=== PATIENT | male | born 1960 | race Caucasian/White ===

== ENCOUNTER 2018-12-03 07:14 | Inpatient (IN) | payer OTHER ==
--- NOTE | 2018-12-03 07:52 | RAD ---
EXAM: XR Chest 1 View Portable PROVIDED CLINICAL HISTORY: Syncope COMPARISON: 06/17/2015 FINDINGS: Cardiac and mediastinal silhouette is within normal limits. Diffuse prominence of the pulmonary inter stitium appears similar to the prior study. Interval development of rounded, masslike opacity involving the left lower lung zone. Flattening of the hemidiaphragms and blunting of both lateral cos tophrenic angles appear similar to the prior study. There is no evidence for pneumothorax. IMPRESSION: Masslike left lower lung zone parenchymal opacity. Correlation with CT recommended.
[2018-12-03 07:58] LABS: #Lymphocytes 0.9 thou/uL (1.20-3.40); #Monocytes 0.9 thou/uL (0.11-0.59); %Basophils 0.5 % (0.0-1.0); %Eosinophils 0.4 % (0.0-10.0); %Lymphocytes 9.6 % (21.0-51.0); %Neutrophils 79.5 % (42.0-75.0); Hemoglobin 17.8 g/dL (14.0-18.0); Mean Corpuscular HGB CONC 33.6 g/dL (32.0-36.0); Mean Corpuscular Hemoglobin 30.7 pg (27.0-31.0); Mean Corpuscular Volume 91.6 fL (78.0-98.0); Mean Platelet Volume 7.5 fL (7.4-10.4); Platelet Count 156 thou/uL (130-400); RBC Distribution Width 16.8 % (11.5-14.5); White Blood Cell (WBC) Count 8.8 thou/uL (4.8-10.8)
[2018-12-03 07:59] LABS: Base Excess-Venous -1.8 mmol/L (-2.0 to 3.0); Bicarbonate (HCO3v) 22.3 mmol/L (22.0-28.0); CO2 Tension (PvCO2) 36.3 mmHg (40.0-50.0); Calcium, Ionized 1.01 mmol/L (See Comments:); Chloride 96 mmol/L (98-107); Hemoglobin - Calc 20.7 g/dL (14.0-18.0); Potassium 4.1 mmol/L (3.5-5.1); Sodium 126 mmol/L (138-145); T. Carbon Dioxide 23.5 mmol/L (22.0-28.0); vO2 Saturation-calc 62.1 % (60.0-85.0)
--- NOTE | 2018-12-03 08:07 | CT ---
Exam: CT brain PROVIDED CLINICAL HISTORY: Syncope COMPARISON: 02/06/2013 FINDINGS: The ventricular system is normal in size and morphology. No evidence for intracranial hemorrhage or mass effect. The extracranial soft tissues and osseous structures demonstrate no evidence for an acute abnormality. IMPRESSION: No evidence for intracranial hemorrhage or mass effect.
[2018-12-03 08:21] LABS: ALT (SGPT) 8 U/L (8-55); AST (SGOT) 18 U/L (5-34); Albumin 3.8 g/dL (3.5-5.0); Alkaline Phosphatase 69 U/L (40-150); Anion Gap 18 mmol/L (10-20); BUN (Urea Nitrogen) 15 mg/dL (8.4-25.7); Bilirubin, Total 0.8 mg/dL (0.2-1.2); Calc. Creatinine Clearance 0 mL/min (70-130); Calcium 9.6 mg/dL (7.8-10.44); Carbon Dioxide 24 mmol/L (22-29); Chloride 88 mmol/L (98-107); Estimated GFR-MDRD 45; Globulin 4.2 g/dL (2.4-3.5); Glucose 95 mg/dL (70-105); Sodium 126 mmol/L (136-145)
[2018-12-03 08:23] LABS: Acetaminophen Less than 6.0 mcg/mL (10.0-30.0); Alcohol Less than 10 mg/dL (Less than 10); CK (CPK) 427 U/L (30-200); Lipase 19 U/L (8-78); Salicylate Less than 8.0 mg/dL (15.0-30.0)
--- NOTE | 2018-12-03 08:36 | CT ---
EXAM: CT cervical spine PROVIDED CLINICAL HISTORY: Syncope, pain COMPARISON: None FINDINGS: No evidence for fracture or traumatic subluxation. No prevertebral soft tissue swelling apparent. Ce rvical degenerative changes are noted. Conspicuous emphysematous change involving visualized lung apices. IMPRESSION: No evidence for fracture or traumatic subluxation.
--- NOTE | 2018-12-03 08:55 | CT ---
EXAM: CT Abdomen Pelvis W Con PROVIDED CLINICAL HISTORY: Syncope COMPARISON: None FINDINGS: Please see concurrently performed CT chest for findings involving the chest. There is a 1.8 cm right adrenal mass. There is a small hiatal hernia. The liver, spleen, pancreas and kidneys demonstrate no significant abnormality. Simple left renal cyst. 1.4 cm left adrenal mass. No bowel dilatation, inflammatory fat stranding, free fluid or free air apparent. Atherosclerosis. Ga llstones. Areas of prior fat necrosis involving omental fat. Fat-containing supraumbilical abdominal wall hernia with associated fat necrosis involving/adjacent to the herniated fat. The osseous structures demonstrate no concerning lytic or blastic lesions. Probably subacute superior endplate compression fracture involving L2. Metallic density within the subcutaneous fat of the right lower pelvis. IMPRESSION: 1. Please see chest CT for regarding chest findings. 2. Bilateral adrenal masses, incompletely characterized. Metastatic disease is not excluded. 3. Subacute appearing superior endplate compression fracture involving L2. 4. Other chronic findings as above.
--- NOTE | 2018-12-03 08:58 | CT ---
CTA Angio Chest W WO Con History: Dyspnea. Abnormal chest radiograph. Comparison: Chest radiograph same day. CT angiogram chest June 17, 2015 Findings: CT angiogram chest performed after the intravenous administration of contrast. 3-D renderin g provided. Pulmonary arteries are dilated. No proximal segmental pulmonary arterial filling defect. Size enlarging left anterior chest wall sebaceous cyst. Size increase from 2016 pretracheal mediastin al lymph nodes. Small nodule measuring 6 mm along the left visceral mediastinal pleura. There is a mass in the left lower lobe is somewhat round measuring up to 5 cm in size with vessels co ursing through the mass. Small effusions. Severe background emphysema with large bullous formation in the upper lobes. Round a telectatic changes right lung base. Old right anterior second, third, fourth, fifth rib fractures. No acute displaced rib fracture. Old a nterior left second, third, and fourth rib fractures as well as 6 rib fracture. No thoracic spine compression fracture. Impression: 1. No pulmonary embolism. 2. 5 cm mass superior segment left lower lobe which is amenable to percutaneous biopsy. 3. Severe background emphysema. 4. Dilated pulmonary artery suggesting pulmonary arterial hypertension. 5. 6 mm nodule axial image 43 abutting the visceral mediastinal pleura concerning for a metastatic de posit. 6. Ill-defined groundglass nodule within the anterior segment left upper lobe axial image 56 may refl ect alveolitis/infection versus an ill-defined satellite nodule.
[2018-12-03 09:44] LABS: Bilirubin Negative (Negative); Blood, Urine Negative (Negative); Clarity Clear (Clear); Glucose, Urine (Dipstick) Normal (Negative); Leukocyte Negative Leu/uL (Negative); Nitrite Negative (Negative); Protein, Urine (Dipstick) 10 mg/dL (Neg-Trace)
[2018-12-03 09:55] LABS: Amphetamine Not Detected (NotDetected); Barbiturates Screen Not Detected (NotDetected); Benzodiazepine Screen Not Detected (NotDetected); Cocaine Metabolite Screen Not Detected (NotDetected); Medtox Control Line Valid? VALID (VALID); Medtox Reader # READER 4; Methadone Not Detected (NotDetected); Methamphetamine Not Detected (NotDetected); Opiate Screen Not Detected (NotDetected); Oxycodone Screen Not Detected (NotDetected); Phencyclidine (PCP) Not Detected (NotDetected); THC/Cannabinoid Screen Not Detected (NotDetected); Tricyclic Screen Not Detected (NotDetected)
[2018-12-03] MEDS ORDERED: Iopamidol 370 76% 100 ML VIAL ONE (10:33)
[2018-12-03] MEDS ORDERED: Senokot S 8.6-50 MG TAB PO PRN (11:22)
[2018-12-03] MEDS ORDERED: Diabetic Tussin 200 MG/10 ML UDCUP PO PRN (11:22)
[2018-12-03] MEDS ORDERED: Ondansetron PF 4 MG/2 ML Vial IVP PRN (11:22)
[2018-12-03] MEDS ORDERED: hydrALAZINE 20 MG/ML VIAL SLOW IVP PRN (11:22)
[2018-12-03] MEDS ORDERED: Sodium Chloride 0.65% Nasal 44 ML BOT EA NARE PRN (11:22)
[2018-12-03] MEDS ORDERED: Artificial Tears 18 DROP/0.9 ML EA EYE PRN (11:22)
[2018-12-03] MEDS ORDERED: Cepastat Lozenges 1 LOZ PO PRN (11:22)
[2018-12-03] MEDS ORDERED: Zolpidem Tartrate 5 MG TAB PO PRN (11:22)
[2018-12-03] MEDS ORDERED: Loperamide HCl 2 MG CAP PO PRN (11:22)
[2018-12-03] MEDS ORDERED: Loratadine 10 MG TAB PO PRN (11:22)
[2018-12-03] MEDS ORDERED: Calcium Carbonate 500 MG ChewTAB PO PRN (11:22)
[2018-12-03] MEDS ORDERED: Bisacodyl 10 MG SUPP PR PRN (11:22)
[2018-12-03 11:54] LABS: Lactic Acid 1.8 mmol/L (0.5-2.2)
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
[2018-12-03] MEDS: Ondansetron ODT 4 MG TAB PO PRN ×2 (15:17→21:47)
[2018-12-03] MEDS: Sodium Chloride 0.9% 1,000 ML IV SCH (16:16)
[2018-12-03 17:12] LABS: Creatinine, Urine 111.54 mg/dL (63-166)
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
[2018-12-03] MEDS: Mometasone/Formoterol 120 PUFF INHALER INH SCH (19:01)
[2018-12-03] MEDS ORDERED: Doxycycline 100 MG CAP PO SCH (21:00)
[2018-12-03] MEDS ORDERED: Promethazine 25 MG TAB PO PRN (21:30)
[2018-12-03] MEDS ORDERED: hydrOXYzine Pamoate 25 mg Capsule PO PRN (21:30)
[2018-12-03] MEDS ORDERED: Divalproex Sodium DR 500 MG TAB PO SCH (22:30)
[2018-12-03] MEDS ORDERED: risperiDONE 0.25 MG TAB PO SCH (22:30)
[2018-12-03] MEDS ORDERED: traMADol HCl 50 MG TAB PO SCH (22:30)
[2018-12-03] MEDS ORDERED: Benztropine 1 MG TAB PO SCH (22:30)
[2018-12-04] MEDS: Sodium Chloride 0.9% 1,000 ML IV SCH (00:06)
[2018-12-04 04:17] LABS: Lactic Acid 1.1 mmol/L (0.5-2.2)
[2018-12-04 04:28] LABS: ALT (SGPT) Less than 7 U/L (8-55); AST (SGOT) 17 U/L (5-34); Albumin 2.8 g/dL (3.5-5.0); Alkaline Phosphatase 50 U/L (40-150); Anion Gap 9 mmol/L (10-20); BUN (Urea Nitrogen) 11 mg/dL (8.4-25.7); Bilirubin, Total 0.6 mg/dL (0.2-1.2); Calc. Creatinine Clearance 117 mL/min (70-130); Calcium 8.6 mg/dL (7.8-10.44); Carbon Dioxide 27 mmol/L (22-29); Chloride 97 mmol/L (98-107); Estimated GFR-MDRD Greater than 90; Globulin 3.1 g/dL (2.4-3.5); Glucose 72 mg/dL (70-105); Potassium 3.7 mmol/L (3.5-5.1); Protein, Total 5.9 g/dL (6.0-8.3); Sodium 129 mmol/L (136-145)
[2018-12-04 04:45] LABS: Band 5 % (5-11); Elliptocytes SLIGHT = 2-5 cells (100X) (0-1/hpf); Eosinophils 1 % (0-10); Lymphocytes 16 % (21-51); MDiff Complete? YES; Mean Corpuscular HGB CONC 33.9 g/dL (32.0-36.0); Mean Corpuscular Hemoglobin 31.2 pg (27.0-31.0); Mean Corpuscular Volume 92.1 fL (78.0-98.0); Mean Platelet Volume 7.8 fL (7.4-10.4); Metamyelocyte 1 % (0-0); Monocytes 13 % (0-10); Neutrophil 62 % (42-75); Platelet Count 86 thou/uL (130-400); Platelet Morphology Comment Appears Decreased; RBC Distribution Width 16.5 % (11.5-14.5); Reactive Lymphocytes 2 % (0-10); Red Blood Cell (RBC) Count 4.16 mill/uL (4.70-6.10); White Blood Cell (WBC) Count 6.3 thou/uL (4.8-10.8)
[2018-12-04] MEDS: Mometasone/Formoterol 120 PUFF INHALER INH SCH ×2 (07:23→18:28)
[2018-12-04] MEDS ORDERED: Famotidine 20 MG TAB PO SCH (09:00)
[2018-12-04] MEDS ORDERED: Enoxaparin Sodium 40 MG/0.4 ML SYRINGE SC SCH (09:00)
[2018-12-04] MEDS: Benztropine 1 MG TAB PO SCH ×2 (09:17→20:14)
[2018-12-04] MEDS: traMADol HCl 50 MG TAB PO SCH ×2 (09:17→20:15)
[2018-12-04] MEDS: Furosemide 20 MG TAB PO SCH (09:17)
[2018-12-04] MEDS: Divalproex Sodium DR 500 MG TAB PO SCH ×2 (09:18→20:15)
[2018-12-04] MEDS: Nicotine 21 MG PATCH TD SCH ×2 (09:19→11:18)
--- NOTE | 2018-12-04 11:52 | PDOC.HOSPP ---
- Subjective Encounter Date: 12/04/18 Encounter Time: 07:15 Subjective: Patient seen and examined. No new complaints. No overnight events today he is less short of breath, no fever, still weak - Objective Vital Signs & Weight: Vital Signs (12 hours) Temp Pulse Resp BP Pulse Ox 12/04/18 08:18 98.3 F 106 H 18 126/80 94 L 12/04/18 07:28 93 L 12/04/18 07:26 93 16 93 L 12/04/18 07:23 93 16 93 L 12/04/18 04:00 99.4 F 96 16 111/74 92 L 12/04/18 00:06 112 H 20 89 L 12/04/18 00:00 98.8 F 110 H 18 124/78 89 L Weight Weight 185 lb 4.8 oz I&O: 12/03/18 12/04/18 12/05/18 06:59 06:59 06:59 Intake Total 1440 Output Total 625 Balance 815 Result Diagrams: 12/04/18 03:36 12/04/18 03:36 Hospitalist ROS - Review of Systems Constitutional: reports: weakness. denies: fever, chills, sweats, malaise, other Eyes: denies: pain, vision change, conjunctivae inflammation, eyelid inflammation, redness, other ENT: denies: ear pain, ear discharge, nose pain, nose discharge, nose congestion , mouth pain, mouth swelling, throat pain, throat swelling, other Respiratory: reports: cough, shortness of breath. denies: dry, hemoptysis, SOB with excertion, pleuritic pain, sputum, wheezing, other Cardiovascular: denies: chest pain, palpitations, orthopnea, paroxysmal noc. dyspnea, edema, light headedness, other Gastrointestinal: denies: nausea, vomitting, abdominal pain, diarrhea, constipation, melena, hematochezia, other Genitourinary: denies: dysuria, frequency, incontinence, hematuria, retention, other Musculoskeletal: denies: neck pain, shoulder pain, arm pain, back pain, hand pain, leg pain, foot pain, other Skin: denies: rash, lesions, aniket, bruising, other - Medication Medications: Active Medications Generic Name Dose Route Start Last Admin Trade Name Freq PRN Reason Stop Dose Admin Albuterol/Ipratropium 3 ml 12/03/18 13:00 12/04/18 07:26 Duoneb NEB 3 ml [id number] ZEFERINO Administration Benztropine Mesylate 1 mg 12/04/18 09:00 12/04/18 09:17 Cogentin PO 1 mg BID ZEFERINO Administration Divalproex Sodium 500 mg 12/04/18 09:00 12/04/18 09:18 Depakote PO 500 mg DAILY ZEFERINO Administration Famotidine 20 mg 12/04/18 09:00 12/04/18 09:17 Pepcid PO 20 mg DAILY ZEFERINO Administration Furosemide 20 mg 12/04/18 09:00 12/04/18 09:17 Lasix PO 20 mg DAILY ZEFERINO Administration Hydroxyzine Pamoate 25 mg 12/03/18 21:30 12/04/18 09:19 Vistaril PO 25 mg TID PRN Administration Anxiety Levofloxacin 500 mg/ Device 100 mls @ 100 mls/hr 12/04/18 09:00 12/04/18 10: 46 IVPB 100 mls Q24HR ZEFERINO Administration Mometasone Furoate/Formoterol Fumar 2 puff 12/03/18 18:30 12/04/18 07:23 Dulera 200 Mcg/5 Mcg Inhaler INH 2 puff BID-RT ZEFERINO Administration Nicotine 21 mg 12/04/18 09:00 12/04/18 11:18 Nicoderm Patch TD 21 mg DAILY ZEFERINO Administration Ondansetron HCl 4 mg 12/03/18 11:22 12/03/18 21:47 Zofran Odt PO 4 mg Q6H PRN Administration Nausea/Vomiting Sodium Chloride 10 ml 12/04/18 09:00 12/04/18 10:47 Flush - Normal Saline IVF 10 ml Q12HR ZEFERINO Administration Tramadol HCl 50 mg 12/04/18 09:00 12/04/18 09:17 Ultram PO 50 mg BID ZEFERINO Administration - Exam General Appearance: NAD, ill appearing Eye: PERRL, anicteric sclera ENT: normocephalic atraumatic, no oropharyngeal lesions Neck: supple, symmetric, no JVD, no thyromegaly Heart: RRR, no murmur, no gallops, no rubs Respiratory: no rales, no ronchi Respiratory - other findings: air entry reduced both side, left base Gastrointestinal: soft, non-tender, non-distended, normal bowel sounds Extremities: no clubbing, no edema Skin: normal turgor, no lesions Neurological: no focal deficits Musculoskeletal: normal tone, normal strength Psychiatric: normal affect, normal behavior Hosp A/P (1) Acute respiratory failure with hypoxemia Code(s): J96.01 - ACUTE RESPIRATORY FAILURE WITH HYPOXIA Status: Acute (2) Adrenal mass Status: Acute (3) COPD exacerbation Code(s): J44.1 - CHRONIC OBSTRUCTIVE PULMONARY DISEASE W (ACUTE) EXACERBATION Status: Acute (4) Frequent falls Code(s): R29.6 - REPEATED FALLS Status: Acute (5) Hyponatremia Code(s): E87.1 - HYPO-OSMOLALITY AND HYPONATREMIA Status: Acute (6) Hypotension Status: Acute (7) Lung mass Code(s): R91.8 - OTHER NONSPECIFIC ABNORMAL FINDING OF LUNG FIELD Status: Acute (8) Thrombocytopenia Code(s): D69.6 - THROMBOCYTOPENIA, UNSPECIFIED Status: Acute (9) Anxiety and depression Code(s): F41.9 - ANXIETY DISORDER, UNSPECIFIED; F32.9 - MAJOR DEPRESSIVE DISORDER, SINGLE EPISODE, UNSPECIFIED Status: Chronic (10) COPD (chronic obstructive pulmonary disease) Status: Chronic (11) Obesity (BMI 30-39.9) Code(s): E66.9 - OBESITY, UNSPECIFIED Status: Chronic (12) Tobacco abuse Code(s): Z72.0 - TOBACCO USE Status: Chronic - Plan old records reviewed/req, continue antibiotics, PT/OT, respiratory therapy tomorrow he will need IR guaided lung biopsy as his platelet low, will hold lovenox tomorrow will repeat labs cbc, bmp, and coagulation profile continue PT continue levaquin for now echo today he may need placement ?rehab medication reviewed as above symptomatic treatment
--- NOTE | 2018-12-04 13:56 | PRG ---
DATE OF SERVICE: 12/04/2018 SUBJECTIVE: He feels better. He is still having pain on the right side. OBJECTIVE: VITAL SIGNS: On exam, temperature 97.7, pulse 98, respirations 16, O2 saturation 94% on 3 L, and blood pressure 106/65. HEENT: Unremarkable. NECK: No adenopathy. No JVD. LUNGS: Clear. CARDIAC: S1 and S2. Regular. ABDOMEN: Soft. EXTREMITIES: No edema. LABORATORY DATA: White blood cell count 6.3, hematocrit 38.3, and platelet count 86. Sodium 129, potassium 3.7, chloride 97, CO2 of 27, BUN 11, creatinine 0.7, and glucose 72. BNP 257. ASSESSMENT: 1. Lung mass - likely lung cancer. 2. Hyponatremia. 3. Mild thrombocytopenia. PLAN: Hopefully, lung biopsy tomorrow. The patient may need to have platelets given just before the procedure. Job ID: [id number]
[2018-12-04] MEDS: risperiDONE 0.25 MG TAB PO SCH (20:15)
[2018-12-05] MEDS: HYDROcodone/Acetaminophen 5/325 mg Tablet PO PRN ×2 (05:31→14:56)
[2018-12-05 06:26] LABS: INR-International Normal Ratio 1.2; PTT 37.2 SEC (22.9-36.1); Prothrombin Time 14.9 SEC (12.0-14.7)
[2018-12-05 06:36] LABS: Anion Gap 10 mmol/L (10-20); BUN (Urea Nitrogen) 8 mg/dL (8.4-25.7); Calc. Creatinine Clearance 123 mL/min (70-130); Calcium 8.8 mg/dL (7.8-10.44); Carbon Dioxide 29 mmol/L (22-29); Chloride 94 mmol/L (98-107); Estimated GFR-MDRD Greater than 90; Glucose 71 mg/dL (70-105); Potassium 4.2 mmol/L (3.5-5.1); Sodium 129 mmol/L (136-145)
[2018-12-05 06:42] LABS: Band 1 % (5-11); Eosinophils 2 % (0-10); Hemoglobin 11.4 g/dL (14.0-18.0); Lymphocytes 23 % (21-51); MDiff Complete? YES; Mean Corpuscular Hemoglobin 29.7 pg (27.0-31.0); Mean Corpuscular Volume 92.9 fL (78.0-98.0); Mean Platelet Volume 7.3 fL (7.4-10.4); Metamyelocyte 1 % (0-0); Monocytes 11 % (0-10); Neutrophil 62 % (42-75); Platelet Count 74 thou/uL (130-400); Platelet Morphology Comment Appears Decreased; RBC Distribution Width 16.6 % (11.5-14.5); Red Blood Cell (RBC) Count 3.82 mill/uL (4.70-6.10); White Blood Cell (WBC) Count 5.4 thou/uL (4.8-10.8)
[2018-12-05] MEDS: Mometasone/Formoterol 120 PUFF INHALER INH SCH ×2 (08:03→18:13)
[2018-12-05] MEDS: Benztropine 1 MG TAB PO SCH ×2 (09:13→19:52)
[2018-12-05] MEDS: traMADol HCl 50 MG TAB PO SCH ×2 (09:13→19:53)
[2018-12-05] MEDS: Furosemide 20 MG TAB PO SCH (09:15)
[2018-12-05] MEDS: Famotidine 20 MG TAB PO SCH ×2 (09:15→19:52)
[2018-12-05] MEDS: Nicotine 21 MG PATCH TD SCH (09:15)
[2018-12-05] MEDS: Divalproex Sodium DR 500 MG TAB PO SCH ×2 (09:59→19:53)
--- NOTE | 2018-12-05 10:22 | PRG ---
DATE OF SERVICE: 12/05/2018 SUBJECTIVE: The patient is doing about the same. He is coughing up some blood. Scheduled to have lung biopsy later today. PHYSICAL EXAMINATION: VITAL SIGNS: His temperature is 97.5, pulse 80, respirations 16, and O2 saturation 97% on 3 L. HEENT: Unremarkable. NECK: No adenopathy or JVD. LUNGS: Clear anteriorly. CARDIAC: S1 and S2. Regular. ABDOMEN: Soft. EXTREMITIES: No edema. ASSESSMENT: 1. Lung mass, left lower lobe, probably with adrenal metastases. 2. Thrombocytopenia. PLAN: Platelet transfusion and lung biopsy. Job ID: [id number]
[2018-12-05] MEDS ORDERED: Fentanyl 100 MCG/2 ML VIAL ONE (10:57)
[2018-12-05] MEDS ORDERED: Sodium Bicarbonate 2.5 MEQ/5 ML VIAL ONE (10:57)
[2018-12-05] MEDS ORDERED: Midazolam HCl 2 mg/2 ml Vial ONE (10:57)
--- NOTE | 2018-12-05 12:20 | RAD ---
CHEST 2 VIEWS: HISTORY: Status post left lower lobe lung biopsy. FINDINGS: Upright inspiratory and expiratory chest radiograph demonstrate a normal-appearing cardiac silhouette . Chronic changes of the lung parenchyma are identified. Small bilateral effusions are noted. There is evidence of a left lower lobe mass. Upright inspiratory and expiratory radiographs do not demonstr ate a pneumothorax. IMPRESSION: Left lower lobe mass. Patient is status post left lower lobe mass biopsy. No pneumothorax. Transcribed Date/Time: 12/05/2018 1:29 PM
--- NOTE | 2018-12-05 13:02 | CT ---
EXAM: CT Lung Perc Biopsy PROVIDED CLINICAL HISTORY: Left lower lobe lung mass. Biopsy was requested. COMPARISON: CTA chest on 12/03/2018 TECHNIQUE: The procedure including the risks and complications were explained to the patient, and informed conse nt was obtained. The patient was placed on the CT scan table in the prone position. A limited noncontrasted CT scan was obtained through the lower chest with grid localizer in place. An area over lying the left lower lobe mass was marked, and the area was meticulously prepped and draped in usual sterile fashion. The skin and subcutaneous tissues were infiltrated with buffered 1% lidocaine for local anesthesia. A small skin incision was made. A 19-gauge guide needle was advanced followed by axial noncontrasted CT images. This was repeated until the tip of the needle was placed just within the peripheral aspect of the left lower lobe mass. A total of three 20-gauge core needle biopsy specimens were obtained utilizing coaxial technique. The needle was removed, and hemostasis was achieved with direct pressure . Postbiopsy CT images were obtained without evidence of a pneumothorax or findings to suggest a hemato ma. The patient tolerated the procedure well and without immediate complication. Patient was transported to his hospital room in stable condition. IMPRESSION: 1. Large left lower lobe mass. 2. Technically successful CT-guided percutaneous biopsy of the left lower lobe mass. Pathology is cur rently pending. Pathologist was available during the exam and noted adequate material obtained on biopsy specimens.
[2018-12-05 13:13] VITALS: BMI 26.6
--- NOTE | 2018-12-05 15:10 | RAD ---
EXAM: XR Chest Insp/Exp PROVIDED CLINICAL HISTORY: Postbiopsy left lower lobe mass. COMPARISON: 12/05/2018 at 1209 hours. FINDINGS: Patient is rotated to the right which accentuates the cardiac silhouette and mediastinal structures. Chronic appearing lung changes are again seen bilaterally. The large left lower lobe mass is again seen. No pneumothorax is seen, and there is no evidence of a pleural effusion. Chest is overall stabl e when compared to the prior exam. IMPRESSION: Left lower lobe mass and chronic lung changes. No pneumothorax is visualized.
[2018-12-05] MEDS ORDERED: Milk Of Magnesia 30 ML UDCUP PO PRN (15:15)
--- NOTE | 2018-12-05 17:32 | PRG ---
DATE OF SERVICE: 12/05/2018 SUBJECTIVE: The patient is a 58-year-old male with COPD, tobacco dependence, who presented to the emergency room on December 03, 2018, with shortness of breath along with syncope and abdominal discomfort. He had 4 syncopal episodes the day before admission as well as 2 on the day of admission with a witnessed fall. He also reported significant weight loss. His workup in the emergency room was consistent with lung mass along with hyponatremia. The patient underwent a CT-guided lung biopsy today. He denies any chest pain or palpitations at this time. Current medications were reviewed. OBJECTIVE: VITAL SIGNS: Temperature 98.2 with pulse rate of 63, respirations of 18, O2 saturation 93% on 3 L nasal cannula, blood pressure of 111/60. GENERAL: A 58-year-old male, in no apparent distress. LUNGS: Diminished air entry at bilateral bases with scattered rhonchi. HEART: S1 and S2 present. Regular rate and rhythm. ABDOMEN: Soft. Bowel sounds present. EXTREMITIES: No edema or calf tenderness. NEUROLOGIC: Grossly nonfocal. LABORATORY FINDINGS: Sodium 129 from 126 on admission, albumin 2.8, creatinine 0.76 from 1.59 on admission. Urine drug screen was negative. Urine osmolality 399, urine sodium 30, serum osmolality of 279. Blood cultures have been negative. Platelet count of 74. IMAGING STUDIES: Chest x-ray by my review was negative for acute findings. It showed left lower lobe lung mass. CT angiogram of the chest showed left lower lobe lung mass. Echocardiogram showed left ventricular ejection fraction 60% to 65%. CT scan of the abdomen and pelvis showed bilateral adrenal masses with subacute compression fracture of L2. IMPRESSION: 1. Generalized weakness, multifactorial. 2. Lung mass status post CT-guided biopsy. 3. Acute hypoxic respiratory failure secondary to mild chronic obstructive pulmonary disease exacerbation. 4. Hyponatremia secondary to dehydration. 5. Acute kidney injury, improving. 6. Bilateral adrenal masses. 7. Thrombocytopenia. 8. Ongoing tobacco abuse. 9. Anxiety. 10. Depression, mild, stable. 11. Gastroesophageal reflux disease. 12. Hypotension, on admission secondary to volume depletion. 13. Frequent falls. 14. Syncopal episode on admission probably secondary to volume depletion. 15. Lactic acidosis, suspected to be secondary to volume depletion. 16. Chronic low back pain. PLAN: The patient underwent CT-guided lung biopsy today. We will await biopsy report. We will continue Levaquin. Continue nebulizer treatments. Hold Lasix due to hyponatremia. Continue current home medications. Tobacco cessation was emphasized. Continue physical therapy. Recheck labs in a.m. Monitor platelets on a daily basis. Consult case mgr for longterm evaluation. Plan of care was discussed with the patient in detail. He stated understanding. Job ID: [id number]
[2018-12-05] MEDS: Mineral Oil ENEMA PR SCH (18:24)
[2018-12-05] MEDS: Polyethylene Glycol 3350 17 GM Packet PO SCH (19:50)
[2018-12-05] MEDS: Senokot S 8.6-50 MG TAB PO SCH (19:52)
[2018-12-05] MEDS: risperiDONE 0.25 MG TAB PO SCH (19:53)
[2018-12-06 05:21] LABS: Eosinophils 1 % (0-10); Hemoglobin 13.6 g/dL (14.0-18.0); Hypochromia SLIGHT = 6-15 cells (100X) (0-5/hpf); Lymphocytes 12 % (21-51); MDiff Complete? YES; Mean Corpuscular Hemoglobin 31.6 pg (27.0-31.0); Mean Platelet Volume 9.5 fL (7.4-10.4); Monocytes 3 % (0-10); Neutrophil 84 % (42-75); Platelet Count 78 thou/uL (130-400); Platelet Morphology Comment Appears Decreased; RBC Distribution Width 16.8 % (11.5-14.5); White Blood Cell (WBC) Count 5.2 thou/uL (4.8-10.8)
[2018-12-06] MEDS: Mineral Oil ENEMA PR SCH (06:21)
[2018-12-06 07:09] LABS: Albumin 3.3 g/dL (3.5-5.0); Anion Gap 14 mmol/L (10-20); BUN (Urea Nitrogen) 7 mg/dL (8.4-25.7); BUN/Creatinine Ratio 8.64; Calc. Creatinine Clearance 115 mL/min (70-130); Calcium 9.5 mg/dL (7.8-10.44); Carbon Dioxide 28 mmol/L (22-29); Chloride 91 mmol/L (98-107); Estimated GFR-MDRD Greater than 90; Glucose 65 mg/dL (70-105); Magnesium 1.9 mg/dL (1.6-2.6); Phosphorus 4.4 mg/dL (2.3-4.7); Potassium 4.7 mmol/L (3.5-5.1); Sodium 128 mmol/L (136-145)
[2018-12-06] MEDS: Mometasone/Formoterol 120 PUFF INHALER INH SCH ×2 (07:18→18:10)
[2018-12-06] MEDS: traMADol HCl 50 MG TAB PO SCH ×2 (09:46→20:52)
[2018-12-06] MEDS: Benztropine 1 MG TAB PO SCH ×2 (09:46→19:20)
[2018-12-06] MEDS: Folic Acid 1 MG TAB PO SCH (09:46)
[2018-12-06] MEDS: Multivit, Therapeutic 1 TAB PO SCH (09:46)
[2018-12-06] MEDS: Senokot S 8.6-50 MG TAB PO SCH ×2 (09:46→19:20)
[2018-12-06] MEDS: Famotidine 20 MG TAB PO SCH ×2 (09:46→19:26)
[2018-12-06] MEDS: Polyethylene Glycol 3350 17 GM Packet PO SCH ×2 (09:47→19:22)
[2018-12-06] MEDS: Bisacodyl 10 MG SUPP PR SCH (09:48)
[2018-12-06] MEDS: Divalproex Sodium DR 500 MG TAB PO SCH ×2 (09:49→19:22)
--- NOTE | 2018-12-06 10:13 | PRG ---
DATE OF SERVICE: 12/06/2018 SUBJECTIVE: The patient seems to be doing okay. He has no acute complaints except for pain. OBJECTIVE: VITAL SIGNS: His temperature is 97.7, pulse 80, respirations 18, O2 saturation 92% on 2.5 L, and blood pressure 107/82. HEENT: Unremarkable. NECK: No adenopathy, JVD, or bruits. LUNGS: Clear. ABDOMEN: Soft. EXTREMITIES: No edema. ASSESSMENT: 1. Left lower lobe lung mass, likely cancer. 2. Bilateral adrenal lesions. PLAN: Probably, we will require further staging as an outpatient with PET scan. Once the biopsy is back, I would get Oncology involved. I do not think he is a surgical candidate based on the appearance of the abdominal CT. Job ID: [id number]
[2018-12-06] MEDS: risperiDONE 0.25 MG TAB PO SCH (19:21)
[2018-12-06] MEDS: HYDROcodone/Acetaminophen 5/325 mg Tablet PO PRN (19:21)
--- NOTE | 2018-12-06 21:16 | PDOC.HOSPP ---
- Subjective Encounter Date: 12/06/18 Encounter Time: 09:30 Subjective: Patient seen and examined for Lung mass. No new CP or SOB. No new complaints. No overnight events - Objective Vital Signs & Weight: Vital Signs (12 hours) Temp Pulse Resp BP Pulse Ox 12/06/18 19:22 97.7 F 97 16 118/77 94 L 12/06/18 18:09 89 16 98 12/06/18 13:33 68 18 91 L Weight Admit Weight 184 lb Weight 185 lb 4.8 oz Most Recent Monitor Data NIBP 99/67 I&O: 12/05/18 12/06/18 12/07/18 06:59 06:59 06:59 Intake Total 590 799 1465 Output Total 400 300 900 Balance -100 540 660 Result Diagrams: 12/06/18 04:49 12/06/18 06:42 Additional Labs: Accuchecks 12/06/18 17:38 POC Glucose 79 Radiology Reviewed by me: Yes (CXR - reviewed) Hospitalist ROS - Review of Systems Cardiovascular: denies: chest pain, palpitations, orthopnea, paroxysmal noc. dyspnea, edema, light headedness, other Gastrointestinal: denies: nausea, vomitting, abdominal pain, diarrhea, constipation, melena, hematochezia, other - Medication Medications: Active Medications Generic Name Dose Route Start Last Admin Trade Name Freq PRN Reason Stop Dose Admin Hydrocodone Bitart/Acetaminophen 1 tab 12/03/18 11:22 12/06/18 19:21 [place] 5/325 PO 1 tab Q4H PRN Administration Moderate Pain (4-6) Albuterol/Ipratropium 3 ml 12/03/18 13:00 12/06/18 18:09 Duoneb NEB 3 ml [id number] ZEFERINO Administration Benztropine Mesylate 1 mg 12/04/18 09:00 12/06/18 19:20 Cogentin PO 1 mg BID ZEFERINO Administration Bisacodyl 10 mg 12/06/18 09:00 12/06/18 09:48 Dulcolax MA 10 mg DAILY ZEFERINO Administration Divalproex Sodium 500 mg 12/04/18 09:00 12/06/18 09:49 Depakote PO 500 mg DAILY ZEFERINO Administration Divalproex Sodium 1,000 mg 12/04/18 21:00 12/06/18 19:22 Depakote PO 1,000 mg HS ZEFERINO Administration Famotidine 20 mg 12/05/18 09:00 12/06/18 19:26 Pepcid PO Not Given BID ZEFERINO Folic Acid 1 mg 12/06/18 09:00 12/06/18 09:46 Folvite PO 1 mg DAILY ZEFERINO Administration Hydroxyzine Pamoate 25 mg 12/03/18 21:30 12/04/18 09:19 Vistaril PO 25 mg TID PRN Administration Anxiety Levofloxacin 500 mg/ Device 100 mls @ 100 mls/hr 12/04/18 09:00 12/06/18 10: 34 IVPB 100 mls Q24HR ZEFERINO Administration Mometasone Furoate/Formoterol Fumar 2 puff 12/03/18 18:30 12/06/18 18:10 Dulera 200 Mcg/5 Mcg Inhaler INH 2 puff BID-RT ZEFERINO Administration Multivitamins 1 tab 12/06/18 09:00 12/06/18 09:46 Theragran PO 1 tab DAILY ZEFERINO Administration Ondansetron HCl 4 mg 12/03/18 11:22 12/03/18 21:47 Zofran Odt PO 4 mg Q6H PRN Administration Nausea/Vomiting Polyethylene Glycol 17 gm 12/05/18 21:00 12/06/18 19:22 Miralax PO 17 gm BID ZEFERINO Administration Risperidone 0.5 mg 12/04/18 21:00 12/06/18 19:21 Risperidone PO 0.5 mg HS ZEFERINO Administration Senna/Docusate Sodium 2 tab 12/05/18 21:00 12/06/18 19:20 Senokot S PO 2 tab BID ZEFERINO Administration Sodium Chloride 10 ml 12/04/18 09:00 12/06/18 19:22 Flush - Normal Saline IVF 10 ml Q12HR ZEFERINO Administration Tramadol HCl 50 mg 12/04/18 09:00 12/06/18 20:52 Ultram PO Not Given BID ZEFERINO - Exam General Appearance: NAD Neck: supple, no JVD Heart: RRR, no gallops, no rubs Respiratory: CTAB, no wheezes, rhonchi Gastrointestinal: soft, non-tender, non-distended, normal bowel sounds Extremities: no edema Hosp A/P - Plan DVT proph w/SCDs IMPRESSION: 1. Generalized weakness, multifactorial. 2. Lung mass status post CT-guided biopsy. 3. Acute hypoxic respiratory failure secondary to mild COPD exacerbation. 4. Hyponatremia secondary to dehydration. 5. Acute kidney injury, improving. 6. Bilateral adrenal masses. 7. Thrombocytopenia. 8. Ongoing tobacco abuse. 9. Anxiety. 10. Depression, mild, stable. 11. Gastroesophageal reflux disease. 12. Hypotension, on admission secondary to volume depletion. 13. Frequent falls. 14. Syncopal episode on admission probably secondary to volume depletion. 15. Lactic acidosis, suspected to be secondary to volume depletion. 16. Chronic low back pain. PLAN: Await biopsy report. Continue Levaquin with nebulizer treatments. Lasix on hold due to hyponatremia. Wean O2 Hold Lovenox due to low platelets AM labs
[2018-12-07 04:41] LABS: Band 1 % (5-11); Eosinophils 7 % (0-10); Hemoglobin 13.8 g/dL (14.0-18.0); Lymphocytes 22 % (21-51); MDiff Complete? YES; Mean Corpuscular HGB CONC 33.4 g/dL (32.0-36.0); Mean Corpuscular Hemoglobin 31.2 pg (27.0-31.0); Mean Corpuscular Volume 93.6 fL (78.0-98.0); Mean Platelet Volume 7.1 fL (7.4-10.4); Monocytes 12 % (0-10); Neutrophil 58 % (42-75); Platelet Count 93 thou/uL (130-400); Platelet Morphology Comment Appears Decreased; RBC Distribution Width 16.9 % (11.5-14.5); Red Blood Cell (RBC) Count 4.41 mill/uL (4.70-6.10)
[2018-12-07 04:49] LABS: Albumin 3.3 g/dL (3.5-5.0); Anion Gap 14 mmol/L (10-20); BUN (Urea Nitrogen) 7 mg/dL (8.4-25.7); BUN/Creatinine Ratio 8.86; Calc. Creatinine Clearance 118 mL/min (70-130); Calcium 9.5 mg/dL (7.8-10.44); Carbon Dioxide 28 mmol/L (22-29); Chloride 92 mmol/L (98-107); Estimated GFR-MDRD Greater than 90; Glucose 81 mg/dL (70-105); Phosphorus 4.1 mg/dL (2.3-4.7); Potassium 4.8 mmol/L (3.5-5.1); Sodium 129 mmol/L (136-145)
[2018-12-07] MEDS: Mometasone/Formoterol 120 PUFF INHALER INH SCH ×2 (06:54→18:58)
[2018-12-07] MEDS: Divalproex Sodium DR 500 MG TAB PO SCH ×2 (08:03→20:17)
[2018-12-07] MEDS: Benztropine 1 MG TAB PO SCH ×2 (08:04→20:15)
[2018-12-07] MEDS: traMADol HCl 50 MG TAB PO SCH ×2 (08:04→20:16)
[2018-12-07] MEDS: Famotidine 20 MG TAB PO SCH ×2 (08:04→20:15)
[2018-12-07] MEDS: Senokot S 8.6-50 MG TAB PO SCH ×2 (08:05→20:15)
[2018-12-07] MEDS: Bisacodyl 10 MG SUPP PR SCH (08:05)
[2018-12-07] MEDS: Folic Acid 1 MG TAB PO SCH (08:05)
[2018-12-07] MEDS: Multivit, Therapeutic 1 TAB PO SCH (08:05)
[2018-12-07] MEDS: Acetaminophen 325 MG TAB PO PRN (08:08)
--- NOTE | 2018-12-07 17:43 | PDOC.HOSPP ---
- Subjective Encounter Date: 12/07/18 Encounter Time: 16:00 Subjective: Patient seen and examined for Resp failure. No CP or SOB at rest. Productive cough +. No new complaints. No overnight events - Objective Vital Signs & Weight: Vital Signs (12 hours) Temp Pulse Resp BP BP Pulse Ox 12/07/18 16:45 98.1 F 73 18 144/77 H 94 L 12/07/18 13:17 85 16 12/07/18 12:36 97.8 F 72 18 130/86 94 L 12/07/18 08:18 97.7 F 78 18 134/87 95 12/07/18 07:32 98 12/07/18 07:29 84 16 98 Weight Admit Weight 184 lb Weight 185 lb 4.8 oz Most Recent Monitor Data NIBP 99/67 I&O: 12/06/18 12/07/18 12/08/18 06:59 06:59 06:59 Intake Total 840 2040 Output Total 300 1300 Balance 540 740 Result Diagrams: 12/07/18 04:10 12/07/18 04:11 Additional Labs: Accuchecks 12/07/18 12/06/18 00:55 17:38 POC Glucose 89 79 Hospitalist ROS - Review of Systems Cardiovascular: denies: chest pain, palpitations, orthopnea, paroxysmal noc. dyspnea, edema, light headedness, other Gastrointestinal: denies: nausea, vomiting, abdominal pain, diarrhea, constipation, melena, hematochezia, other - Medication Medications: Active Medications Generic Name Dose Route Start Last Admin Trade Name Freq PRN Reason Stop Dose Admin Acetaminophen 650 mg 12/03/18 11:22 12/07/18 08:08 Tylenol PO 650 mg Q4H PRN Administration Headache/Fever/Mild Pain (1-3) Hydrocodone Bitart/Acetaminophen 1 tab 12/03/18 11:22 12/06/18 19:21 [place] 5/325 PO 1 tab Q4H PRN Administration Moderate Pain (4-6) Albuterol/Ipratropium 3 ml 12/03/18 13:00 12/07/18 13:17 Duoneb NEB 3 ml [id number] ZEFERINO Administration Benztropine Mesylate 1 mg 12/04/18 09:00 12/07/18 08:04 Cogentin PO 1 mg BID ZEFERINO Administration Divalproex Sodium 500 mg 12/04/18 09:00 12/07/18 08:03 Depakote PO 500 mg DAILY ZEFERINO Administration Divalproex Sodium 1,000 mg 12/04/18 21:00 12/06/18 19:22 Depakote PO 1,000 mg HS ZEFERINO Administration Famotidine 20 mg 12/05/18 09:00 12/07/18 08:04 Pepcid PO 20 mg BID ZEFERINO Administration Folic Acid 1 mg 12/06/18 09:00 12/07/18 08:05 Folvite PO 1 mg DAILY ZEFERINO Administration Hydroxyzine Pamoate 25 mg 12/03/18 21:30 12/04/18 09:19 Vistaril PO 25 mg TID PRN Administration Anxiety Levofloxacin 500 mg/ Device 100 mls @ 100 mls/hr 12/04/18 09:00 12/07/18 08: 08 IVPB 100 mls Q24HR ZEFERINO Administration Mometasone Furoate/Formoterol Fumar 2 puff 12/03/18 18:30 12/07/18 06:54 Dulera 200 Mcg/5 Mcg Inhaler INH 2 puff BID-RT ZEFERINO Administration Multivitamins 1 tab 12/06/18 09:00 12/07/18 08:05 Theragran PO 1 tab DAILY ZEFERINO Administration Ondansetron HCl 4 mg 12/03/18 11:22 12/03/18 21:47 Zofran Odt PO 4 mg Q6H PRN Administration Nausea/Vomiting Risperidone 0.5 mg 12/04/18 21:00 12/06/18 19:21 Risperidone PO 0.5 mg HS ZEFERINO Administration Sodium Chloride 10 ml 12/04/18 09:00 12/07/18 08:10 Flush - Normal Saline IVF 10 ml Q12HR ZEFERINO Administration Tramadol HCl 50 mg 12/04/18 09:00 12/07/18 08:04 Ultram PO 50 mg BID ZEFERINO Administration - Exam General Appearance: NAD Heart: RRR, no gallops, no rubs Respiratory: CTAB, no rales, rhonchi Gastrointestinal: soft, non-tender, normal bowel sounds Extremities: no edema Hosp A/P - Plan DVT proph w/SCDs IMPRESSION: 1. Generalized weakness, multifactorial. 2. Lung mass status post CT-guided biopsy. 3. Acute hypoxic respiratory failure secondary to mild COPD exacerbation. 4. Hyponatremia secondary to dehydration. Lasix on hold 5. Acute kidney injury, improving. 6. Bilateral adrenal masses. 7. Thrombocytopenia. 8. Ongoing tobacco abuse. 9. Anxiety. 10. Depression, mild, stable. 11. Gastroesophageal reflux disease. 12. Hypotension, on admission secondary to volume depletion. 13. Frequent falls. 14. Syncopal episode on admission probably secondary to volume depletion. 15. Lactic acidosis, suspected to be secondary to volume depletion. 16. Chronic low back pain. PLAN: Continue Levaquin with nebulizer treatments. Await biopsy Home O2 setup Lovenox on hold due to low platelets Cont other meds as above
[2018-12-07] MEDS: Polyethylene Glycol 3350 17 GM Packet PO SCH (18:40)
[2018-12-07] MEDS: risperiDONE 0.25 MG TAB PO SCH (20:16)
[2018-12-07] MEDS: Ondansetron ODT 4 MG TAB PO PRN (20:58)
[2018-12-08 05:38] LABS: Albumin 3.4 g/dL (3.5-5.0); Anion Gap 8 mmol/L (10-20); BUN (Urea Nitrogen) 6 mg/dL (8.4-25.7); BUN/Creatinine Ratio 7.32; Calc. Creatinine Clearance 114 mL/min (70-130); Calcium 9.3 mg/dL (7.8-10.44); Carbon Dioxide 31 mmol/L (22-29); Chloride 90 mmol/L (98-107); Estimated GFR-MDRD Greater than 90; Glucose 68 mg/dL (70-105); Phosphorus 4.2 mg/dL (2.3-4.7); Potassium 4.4 mmol/L (3.5-5.1); Sodium 125 mmol/L (136-145)
[2018-12-08 05:42] LABS: Hemoglobin 13.9 g/dL (14.0-18.0); Lymphocytes 12 % (21-51); MDiff Complete? YES; Mean Corpuscular Hemoglobin 30.7 pg (27.0-31.0); Mean Corpuscular Volume 92.9 fL (78.0-98.0); Monocytes 8 % (0-10); Neutrophil 80 % (42-75); Platelet Count 91 thou/uL (130-400); Platelet Morphology Comment Appears Decreased; RBC Distribution Width 16.8 % (11.5-14.5); RBC Morphology Normal; Red Blood Cell (RBC) Count 4.53 mill/uL (4.70-6.10); White Blood Cell (WBC) Count 6.5 thou/uL (4.8-10.8)
[2018-12-08] MEDS: Mometasone/Formoterol 120 PUFF INHALER INH SCH ×2 (07:26→19:16)
[2018-12-08] MEDS: traMADol HCl 50 MG TAB PO SCH ×2 (08:12→20:31)
[2018-12-08] MEDS: Folic Acid 1 MG TAB PO SCH (08:13)
[2018-12-08] MEDS: Famotidine 20 MG TAB PO SCH ×2 (08:13→20:33)
[2018-12-08] MEDS: Multivit, Therapeutic 1 TAB PO SCH (08:14)
[2018-12-08] MEDS: Senokot S 8.6-50 MG TAB PO SCH ×2 (08:14→20:33)
[2018-12-08] MEDS: Benztropine 1 MG TAB PO SCH ×2 (08:14→20:31)
[2018-12-08] MEDS: Divalproex Sodium DR 500 MG TAB PO SCH ×2 (08:15→20:31)
--- NOTE | 2018-12-08 11:26 | PRG ---
DATE OF SERVICE: 12/08/2018 SUBJECTIVE: The patient's lung biopsy came back small cell cancer. I told him the diagnosis today. He understands that this is not something that is going to be treated with surgery. OBJECTIVE: VITAL SIGNS: Temperature 97.5, pulse 83, respirations 18, O2 saturation 95% on 2 L, and blood pressure 116/85. HEENT: Unremarkable. NECK: No JVD. LUNGS: Clear. CARDIAC: S1 and S2, regular. ABDOMEN: Soft. EXTREMITIES: No edema. LABORATORY DATA: White blood cell count 6.5, hematocrit 42, platelet count 91. Sodium 125, potassium 4.4, BUN 6, creatinine 0.8, and glucose 68. ASSESSMENT: 1. Small cell lung cancer. 2. Likely some component of syndrome of inappropriate antidiuretic hormone secretion given the hyponatremia. 3. Tobacco abuse. PLAN: Oncology consultation for further recommendations. The patient may have extensive stage cancers. I suspect adrenal metastasis. He will probably need a PET scan as an outpatient to further stage. Job ID: [id number]
[2018-12-08] MEDS ORDERED: Gadobenate Dimeglumine 529 MG/1 ML (20ML VIAL) ONE (12:40)
--- NOTE | 2018-12-08 15:59 | MRI ---
BRAIN MRI WITH AND WITHOUT CONTRAST: INDICATION: Small cell lung cancer. FINDINGS: There is extensive artifact limiting visualization of the left aspect of the brain and cranial vault due to indwelling jewelry that cannot be removed. This markedly distorts the diffusion weighted imag ing and gradient echo series. There is mild parenchymal volume loss. Signal alteration on the FLAIR sequence of the left hemisphere adjacent the artifact does limit evaluation in this regard. This co uld obscure underlying pathology. This region of the T2 scan demonstrates CSF signal and this region by T1 weighted imaging reveals artifactual increased T1 signal both pre- and post-contrast scans whi ch could obscure pathologic enhancement. Within the nondistorted brain parenchyma, no evidence of an enhancing intraaxial lesion is confirmed. There is mild chronic ischemic disease of the cerebral wh ite matter. IMPRESSION: Markedly limited exam. Within limitations, no definite intracranial metastatic disease is identified . Recommend followup upon extraction of the metallic device for more definitive evaluation/staging. POS: [facility]
[2018-12-08] MEDS: HYDROcodone/Acetaminophen 5/325 mg Tablet PO PRN (16:50)
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
[2018-12-08] MEDS: risperiDONE 0.25 MG TAB PO SCH (20:31)
[2018-12-08] MEDS ORDERED: Clindamycin/D5W 900 MG in Premix Bag 1 BAG IVPB SCH (20:45)
--- NOTE | 2018-12-08 22:14 | PDOC.HOSPP ---
- Subjective Encounter Date: 12/08/18 Encounter Time: 10:30 Subjective: Patient seen and examined for new Lung CA/hyponatremia. Mild intermittent hemoptysis. No new complaints. No overnight events - Objective Vital Signs & Weight: Vital Signs (12 hours) Temp Pulse Pulse Pulse Resp BP BP 12/08/18 20:00 12/08/18 19:32 97.6 F 68 18 12/08/18 19:17 12/08/18 19:16 16 12/08/18 19:15 12/08/18 15:20 97.7 F 70 18 12/08/18 12:45 12/08/18 11:00 73 80 127/92 H 154/94 H BP Pulse Ox Pulse Ox 12/08/18 20:00 98 12/08/18 19:32 137/94 H 98 12/08/18 19:17 92 L 12/08/18 19:16 92 L 12/08/18 19:15 92 L 12/08/18 15:20 137/94 H 96 12/08/18 12:45 99 12/08/18 11:00 93 L Weight Admit Weight 184 lb Weight 185 lb 4.8 oz Most Recent Monitor Data NIBP 99/67 I&O: 12/07/18 12/08/18 12/09/18 06:59 06:59 06:59 Intake Total 2040 600 900 Output Total 1300 1100 675 Balance 740 -500 225 Result Diagrams: 12/08/18 05:09 12/09/18 06:06 Additional Labs: Accuchecks 12/08/18 12/08/18 12/08/18 20:32 15:30 10:35 POC Glucose 78 81 83 Hospitalist ROS - Review of Systems Respiratory: denies: cough, dry, shortness of breath, hemoptysis, SOB with excertion, pleuritic pain, sputum, wheezing, other Cardiovascular: denies: chest pain, palpitations, orthopnea, paroxysmal noc. dyspnea, edema, light headedness, other Gastrointestinal: denies: nausea, vomiting, abdominal pain, diarrhea, constipation, melena, hematochezia, other - Medication Medications: Active Medications Generic Name Dose Route Start Last Admin Trade Name Freq PRN Reason Stop Dose Admin Acetaminophen 650 mg 12/03/18 11:22 12/07/18 08:08 Tylenol PO 650 mg Q4H PRN Administration Headache/Fever/Mild Pain (1-3) Hydrocodone Bitart/Acetaminophen 1 tab 12/03/18 11:22 12/08/18 16:50 [place] 5/325 PO 1 tab Q4H PRN Administration Moderate Pain (4-6) Albuterol/Ipratropium 3 ml 12/03/18 13:00 12/08/18 19:15 Duoneb NEB 3 ml [id number] ZEFERINO Administration Benztropine Mesylate 1 mg 12/04/18 09:00 12/08/18 20:31 Cogentin PO 1 mg BID ZEFERINO Administration Divalproex Sodium 500 mg 12/04/18 09:00 12/08/18 08:15 Depakote PO 500 mg DAILY ZEFERION Administration Divalproex Sodium 1,000 mg 12/04/18 21:00 12/08/18 20:31 Depakote PO 1,000 mg HS ZEFERINO Administration Famotidine 20 mg 12/05/18 09:00 12/08/18 20:33 Pepcid PO 20 mg BID ZEFERINO Administration Folic Acid 1 mg 12/06/18 09:00 12/08/18 08:13 Folvite PO 1 mg DAILY ZEFERINO Administration Hydroxyzine Pamoate 25 mg 12/03/18 21:30 12/04/18 09:19 Vistaril PO 25 mg TID PRN Administration Anxiety Levofloxacin 500 mg/ Device 100 mls @ 100 mls/hr 12/04/18 09:00 12/08/18 10: 41 IVPB 100 mls Q24HR ZEFERINO Administration Mometasone Furoate/Formoterol Fumar 2 puff 12/03/18 18:30 12/08/18 19:16 Dulera 200 Mcg/5 Mcg Inhaler INH 2 puff BID-RT ZEFERINO Administration Multivitamins 1 tab 12/06/18 09:00 12/08/18 08:14 Theragran PO 1 tab DAILY ZEFERINO Administration Ondansetron HCl 4 mg 12/03/18 11:22 12/07/18 20:58 Zofran Odt PO 4 mg Q6H PRN Administration Nausea/Vomiting Risperidone 0.5 mg 12/04/18 21:00 12/08/18 20:31 Risperidone PO 0.5 mg HS ZEFERINO Administration Senna/Docusate Sodium 1 tab 12/07/18 21:00 12/08/18 20:33 Senokot S PO 1 tab BID ZEFERINO Administration Sodium Chloride 10 ml 12/04/18 09:00 12/08/18 20:33 Flush - Normal Saline IVF 10 ml Q12HR ZEFERINO Administration Tramadol HCl 50 mg 12/04/18 09:00 12/08/18 20:31 Ultram PO 50 mg BID ZEFERINO Administration - Exam General Appearance: NAD Heart: RRR, no rubs Respiratory: CTAB, no rales, rhonchi Gastrointestinal: soft, non-tender, normal bowel sounds Extremities: no edema Neurological: no new deficit Hosp A/P - Plan IMPRESSION: 1. Generalized weakness, multifactorial. 2. Lung mass status post CT-guided biopsy - Small cell CA 3. Acute hypoxic respiratory failure secondary to mild COPD exacerbation. 4. Hyponatremia secondary to dehydration. Lasix on hold 5. Acute kidney injury, improving. 6. Bilateral adrenal masses. 7. Thrombocytopenia. 8. Ongoing tobacco abuse. 9. Anxiety. 10. Depression, mild, stable. 11. Gastroesophageal reflux disease. 12. Hypotension, on admission secondary to volume depletion. 13. Frequent falls. 14. Syncopal episode on admission probably secondary to volume depletion. 15. Lactic acidosis, suspected to be secondary to volume depletion. 16. Chronic low back pain. PLAN: Continue Levaquin with nebulizer treatments. Await Oncology input Nephrology consult due to worsening sodium Home O2 setup at [place] Cont other meds as above Lovenox on hold due to low platelets
[2018-12-09 06:42] LABS: Anion Gap 11 mmol/L (10-20); BUN (Urea Nitrogen) 7 mg/dL (8.4-25.7); Calc. Creatinine Clearance 113 mL/min (70-130); Calcium 9.6 mg/dL (7.8-10.44); Carbon Dioxide 30 mmol/L (22-29); Chloride 87 mmol/L (98-107); Estimated GFR-MDRD Greater than 90; Glucose 65 mg/dL (70-105); Potassium 5.1 mmol/L (3.5-5.1); Sodium 123 mmol/L (136-145)
[2018-12-09] MEDS: Mometasone/Formoterol 120 PUFF INHALER INH SCH ×2 (07:17→18:58)
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
--- NOTE | 2018-12-09 08:26 | PDOC.MOPN ---
Interval History: Pt feeling ok today, still SOB. We discussed chemotherapy and plan moving forward. - Vital Signs Vital Signs: Vital Signs (12 hours) Pulse Resp Pulse Ox 12/09/18 07:05 78 18 98 12/09/18 00:09 92 L Weight Admit Weight 184 lb Weight 185 lb 4.8 oz Most Recent Monitor Data NIBP 99/67 - Physical Exam General: Alert, Oriented x3, Cooperative HEENT: Atraumatic Cardiovascular: Regular rate Abdomen: Soft Neurological: Cranial nerves 3-12 NL Psych/Mental Status: Mental status NL - Labs Result Diagrams: 12/08/18 05:09 12/09/18 06:06 Lab results: Laboratory Results - last 24 hr 12/09/18 06:06: Sodium 123 L, Potassium 5.1, Chloride 87 L, Carbon Dioxide 30 H , Anion Gap 11, BUN 7 L, Creatinine 0.83, Estimated GFR (MDRD) Greater than 90 , Glucose 65 L, Calcium 9.6 12/09/18 05:20: POC Glucose 110 12/08/18 20:32: POC Glucose 78 12/08/18 15:30: POC Glucose 81 12/08/18 10:35: POC Glucose 83 12/08/18 10:10: Urine Sodium 52 12/08/18 10:10: Urine Osmolality 342 12/08/18 08:56: Serum Osmolality 276 L A/P - Problem (1) Small cell carcinoma Current Visit: Yes Code(s): C80.1 - MALIGNANT (PRIMARY) NEOPLASM, UNSPECIFIED Status: Acute - Plan Plan: Mediport today start Carboplatin + VP16 today or tomorrow, with Neulasta support Pt will need PET at discharge to evaluate adrenal mass and for other sites of disease: if LS-SCLC would add XRT with C2 and change Carboplatin to Cisplatin , if ES-SCLC could consider adding Tecentriq refer to [facility] as we do not take his type of Medicaid and cannot see him in clinic
[2018-12-09] MEDS ORDERED: CARBOPLATIN IVPB SCH ×2 (09:00→20:15)
[2018-12-09] MEDS ORDERED: SODIUM CHLORIDE 0.9% IVPB SCH ×2 (09:00→20:15)
[2018-12-09] MEDS ORDERED: Palonosetron HCl 0.25 MG in Sodium Chloride 0.9% 50 ML IVPB SCH ×2 (09:00→20:15)
[2018-12-09] MEDS: Multivit, Therapeutic 1 TAB PO SCH (09:35)
[2018-12-09] MEDS: Benztropine 1 MG TAB PO SCH ×2 (09:36→21:09)
[2018-12-09] MEDS: Folic Acid 1 MG TAB PO SCH (09:36)
[2018-12-09] MEDS: Famotidine 20 MG TAB PO SCH ×2 (09:36→21:07)
[2018-12-09] MEDS: traMADol HCl 50 MG TAB PO SCH ×2 (09:36→21:07)
[2018-12-09] MEDS: Senokot S 8.6-50 MG TAB PO SCH ×2 (09:36→21:08)
[2018-12-09] MEDS: Divalproex Sodium DR 500 MG TAB PO SCH ×2 (09:37→21:09)
[2018-12-09] MEDS: Acetaminophen 325 MG TAB PO PRN (09:38)
[2018-12-09] MEDS ORDERED: PROPOFOL 200 MG/20 ML VIAL ONE (14:53)
[2018-12-09] MEDS ORDERED: Lidocaine 1% PF 5 ML VIAL ONE (14:53)
[2018-12-09] MEDS ORDERED: Ondansetron PF 4 MG/2 ML Vial ONE (14:53)
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
[2018-12-09] MEDS ORDERED: Clindamycin/D5W 900 mg/50 ml Premix Bag ONE (16:00)
[2018-12-09] MEDS ORDERED: Lidocaine 2% PF 5 ML VIAL ONE (16:05)
[2018-12-09] MEDS ORDERED: Bupivacaine/Epinephrine 0.25% 30 ML VIAL ONE (16:05)
[2018-12-09] MEDS ORDERED: Fentanyl 100 MCG/2 ML VIAL ONE (16:26)
[2018-12-09] MEDS ORDERED: PROPOFOL 60 ML ONE (16:26)
[2018-12-09] MEDS ORDERED: Midazolam HCl 2 mg/2 ml Vial ONE (16:26)
[2018-12-09] MEDS ORDERED: Famotidine/PF 20 mg/2ml Vial ONE (16:26)
[2018-12-09] MEDS ORDERED: Promethazine HCl 25 MG/ML VIAL IM PRN (17:11)
[2018-12-09] MEDS ORDERED: Promethazine HCl 25 MG/ML VIAL SLOW IVP PRN (17:11)
[2018-12-09] MEDS ORDERED: Ondansetron HCl/PF 4 MG/2 ML Vial IVP PRN (17:11)
--- NOTE | 2018-12-09 18:10 | RAD ---
PORTABLE CHEST: 12/09/18 HISTORY: Mediport catheter placement. COMPARISON: 12/03/18. Mediport catheter has been placed. Line overlies SVC. The patient is rotated which mildly distorts th e mediastinum. There is cardiomegaly. Vascular and interstitial markings remain prominent and stable. The mass density in the left lower lung again noted. IMPRESSION: No acute interval change. POS: AGW
[2018-12-09] MEDS ORDERED: Tolvaptan 15 MG TAB PO SCH (19:45)
--- NOTE | 2018-12-09 20:36 | PDOC.HOSPP ---
- Subjective Encounter Date: 12/09/18 Encounter Time: 08:40 Subjective: Patient seen and examined for new Lung Ca. No hemoptysis. Dry cough. No new complaints. No overnight events - Objective Vital Signs & Weight: Vital Signs (12 hours) Temp Pulse Pulse Resp BP BP Pulse Ox 12/09/18 20:17 91 105/79 12/09/18 19:48 97.9 F 73 18 137/97 H 96 12/09/18 19:30 80 139/96 H 12/09/18 19:00 91 126/63 12/09/18 18:58 66 16 98 12/09/18 13:09 97 12/09/18 13:03 62 14 97 12/09/18 09:06 73 122/68 Weight Admit Weight 184 lb Weight 185 lb 3.013 oz Most Recent Monitor Data NIBP 99/67 I&O: 12/08/18 12/09/18 12/10/18 06:59 06:59 06:59 Intake Total 600 1300 Output Total 1100 1475 Balance -500 -175 Result Diagrams: 12/08/18 05:09 12/09/18 06:06 Additional Labs: Accuchecks 12/09/18 12/09/18 12/09/18 19:34 12:31 05:20 POC Glucose 56 L* 74 110 12/08/18 20:32 POC Glucose 78 Hospitalist ROS - Review of Systems Cardiovascular: denies: chest pain, palpitations, orthopnea, paroxysmal noc. dyspnea, edema, light headedness, other - Medication Medications: Active Medications Generic Name Dose Route Start Last Admin Trade Name Freq PRN Reason Stop Dose Admin Acetaminophen 650 mg 12/03/18 11:22 12/09/18 09:38 Tylenol PO 650 mg Q4H PRN Administration Headache/Fever/Mild Pain (1-3) Hydrocodone Bitart/Acetaminophen 1 tab 12/03/18 11:22 12/08/18 16:50 [place] 5/325 PO 1 tab Q4H PRN Administration Moderate Pain (4-6) Albuterol/Ipratropium 3 ml 12/03/18 13:00 12/09/18 18:58 Duoneb NEB 3 ml [id number] ZEFERINO Administration Benztropine Mesylate 1 mg 12/04/18 09:00 12/09/18 09:36 Cogentin PO 1 mg BID ZEFERINO Administration Divalproex Sodium 500 mg 12/04/18 09:00 12/09/18 09:37 Depakote PO 500 mg DAILY ZEFERINO Administration Divalproex Sodium 1,000 mg 12/04/18 21:00 12/08/18 20:31 Depakote PO 1,000 mg HS ZEFERINO Administration Famotidine 20 mg 12/05/18 09:00 12/09/18 09:36 Pepcid PO 20 mg BID ZEFERINO Administration Folic Acid 1 mg 12/06/18 09:00 12/09/18 09:36 Folvite PO 1 mg DAILY ZEFERINO Administration Hydroxyzine Pamoate 25 mg 12/03/18 21:30 12/04/18 09:19 Vistaril PO 25 mg TID PRN Administration Anxiety Levofloxacin 500 mg/ Device 100 mls @ 100 mls/hr 12/04/18 09:00 12/09/18 09: 39 IVPB 100 mls Q24HR ZEFERINO Administration Mometasone Furoate/Formoterol Fumar 2 puff 12/03/18 18:30 12/09/18 18:58 Dulera 200 Mcg/5 Mcg Inhaler INH 2 puff BID-RT ZEFERINO Administration Multivitamins 1 tab 12/06/18 09:00 12/09/18 09:35 Theragran PO 1 tab DAILY ZEFERINO Administration Ondansetron HCl 4 mg 12/03/18 11:22 12/07/18 20:58 Zofran Odt PO 4 mg Q6H PRN Administration Nausea/Vomiting Risperidone 0.5 mg 12/04/18 21:00 12/08/18 20:31 Risperidone PO 0.5 mg HS ZEFERINO Administration Senna/Docusate Sodium 1 tab 12/07/18 21:00 12/09/18 09:36 Senokot S PO Not Given BID ZEFERINO Sodium Chloride 10 ml 12/04/18 09:00 12/09/18 09:40 Flush - Normal Saline IVF 10 ml Q12HR ZEFERINO Administration Tramadol HCl 50 mg 12/04/18 09:00 12/09/18 09:36 Ultram PO 50 mg BID ZEFERINO Administration - Exam General Appearance: NAD Neck: supple, no JVD Heart: RRR, no gallops Respiratory: CTAB, rhonchi Gastrointestinal: soft, non-tender, normal bowel sounds Hosp A/P - Plan DVT proph w/SCDs IMPRESSION: 1. Generalized weakness, multifactorial. 2. Lung mass status post CT-guided biopsy - Small cell CA 3. Acute hypoxic respiratory failure secondary to mild COPD exacerbation. 4. Hyponatremia/SIADH 5. Acute kidney injury - resolved 6. Bilateral adrenal masses. 7. Thrombocytopenia. 8. Ongoing tobacco abuse. counselled 9. Anxiety. 10. Depression, mild, stable. 11. Gastroesophageal reflux disease. 12. Hypotension, on admission secondary to volume depletion. 13. Frequent falls. 14. Syncopal episode on admission probably secondary to volume depletion. 15. Lactic acidosis, suspected to be secondary to volume depletion. 16. Chronic low back pain. [facility] Continue Levaquin with nebulizer treatments. Tolvaptan Home O2 setup at [place] Cont other meds as above Lovenox on hold due to low platelets AM labs
[2018-12-09] MEDS: risperiDONE 0.25 MG TAB PO SCH (21:09)
[2018-12-09] MEDS: Dexamethasone 10 MG in Sodium Chloride 0.9% 50 ML IVPB SCH (22:35)
[2018-12-09] MEDS: Etoposide 200 MG in Sodium Chloride 0.9% 500 ML IVPB SCH (23:55)
[2018-12-10 04:28] LABS: #Eosinphils 0.2 thou/uL (0.0-0.7); #Lymphocytes 0.4 thou/uL (1.20-3.40); #Monocytes 0.3 thou/uL (0.11-0.59); #Neutrophils 5.2 thou/uL (1.40-6.50); %Eosinophils 2.9 % (0.0-10.0); %Monocytes 4.5 % (0.0-10.0); %Neutrophils 85.6 % (42.0-75.0); Hemoglobin 13.8 g/dL (14.0-18.0); Mean Corpuscular HGB CONC 33.3 g/dL (32.0-36.0); Mean Corpuscular Hemoglobin 30.6 pg (27.0-31.0); Mean Corpuscular Volume 91.9 fL (78.0-98.0); Mean Platelet Volume 6.9 fL (7.4-10.4); Platelet Count 93 thou/uL (130-400); RBC Distribution Width 16.7 % (11.5-14.5); Red Blood Cell (RBC) Count 4.51 mill/uL (4.70-6.10); White Blood Cell (WBC) Count 6.1 thou/uL (4.8-10.8)
[2018-12-10 04:38] LABS: Anion Gap 13 mmol/L (10-20); BUN (Urea Nitrogen) 8 mg/dL (8.4-25.7); Calc. Creatinine Clearance 117 mL/min (70-130); Calcium 9.5 mg/dL (7.8-10.44); Carbon Dioxide 24 mmol/L (22-29); Chloride 101 mmol/L (98-107); Estimated GFR-MDRD Greater than 90; Glucose 108 mg/dL (70-105); Magnesium 2.1 mg/dL (1.6-2.6); Potassium 4.8 mmol/L (3.5-5.1); Sodium 133 mmol/L (136-145)
--- NOTE | 2018-12-10 07:17 | PRG ---
DATE OF SERVICE: 12/10/2018 SERVICE: Nephrology. SUBJECTIVE: A 58-year-old male with new diagnosis of small-cell lung cancer, currently on chemotherapy, being followed up for hyponatremia. The patient was started on Samsca yesterday with appropriate increase in serum sodium from 123 to 133. The patient denied any new complaints. Denied nausea, vomiting, dizziness, mental status change or gait instability. OBJECTIVE: VITAL SIGNS: Temperature 97.5, pulse 99, respiratory rate 18, SpO2 of 92 on 2 L nasal cannula, blood pressure is 119/82. GENERAL: Male patient, in no obvious distress. Afebrile. Anicteric. Acyanotic. HEENT: Normocephalic, atraumatic. Oral mucosa is moist. CARDIOVASCULAR: Regular rhythm and rate with normal heart sounds 1 and 2. RESPIRATORY: Fair air entry bilaterally with no obvious crackle or rhonchi or use of accessory muscles. GI: Full, soft, nontender, nondistended with normal bowel sounds. EXTREMITIES: Grossly normal looking atraumatic with no edema. 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 Cranial nerves 2 through 12 are grossly intact. The patient moves all extremities. DIAGNOSTIC DATA: BMP this morning showed sodium 133, potassium 4.8, chloride 101, CO2 of 24, BUN 8, creatinine 0.8, glucose 108, calcium 9.5, magnesium 2.1. CBC showed WBC count of 6.1, hemoglobin of 13.8, platelet of . ASSESSMENT: 1. Hyponatremia: Due to syndrome of inappropriate ADH. Most likely from small cell cancer with possible contribution from psychotropic medications. 2. Syndrome of inappropriate antidiuretic hormone secretion. 3. Bipolar disorder. 4. Acute kidney injury: Resolved. 5. Small cell cancer, being initiated on chemotherapy. PLAN: 1. Continue Samsca. [place] oral intake advised. 2. Monitor electrolytes as well as uric acid in view of initiation of cancer to rule out tumor lysis syndrome. 3. Continue to follow plasma sodium. Job ID: [id number]
[2018-12-10] MEDS: Mometasone/Formoterol 120 PUFF INHALER INH SCH ×2 (07:47→18:59)
[2018-12-10] MEDS: Benztropine 1 MG TAB PO SCH ×2 (08:11→19:43)
[2018-12-10] MEDS: traMADol HCl 50 MG TAB PO SCH ×2 (08:11→19:43)
[2018-12-10] MEDS: Acetaminophen 325 MG TAB PO PRN (08:11)
[2018-12-10] MEDS: Folic Acid 1 MG TAB PO SCH (08:12)
[2018-12-10] MEDS: Multivit, Therapeutic 1 TAB PO SCH (08:12)
[2018-12-10] MEDS: Senokot S 8.6-50 MG TAB PO SCH ×2 (08:12→19:43)
[2018-12-10] MEDS: Divalproex Sodium DR 500 MG TAB PO SCH ×2 (08:12→19:42)
[2018-12-10] MEDS: Famotidine 20 MG TAB PO SCH ×2 (09:00→19:43)
--- NOTE | 2018-12-10 11:46 | PDOC.OP ---
Operative Note - Operative Note Operative Note: PROCEDURE: Right internal jugular MediPort placement with ultrasound and fluoroscopic guidance DATE OF PROCEDURE: 12/09/2018 SURGEON: Manuel Reyes M.D. PREOPERATIVE DIAGNOSIS: Small cell cancer of the lung POSTOPERATIVE DIAGNOSIS: Multiple cancers along HISTORY: Patient has been diagnosed with small cell cancer of the lung. Chemotherapy has been recommended and a Mediport has been requested for this. He has severe underlying COPD. OPERATIVE PROCEDURE IN DETAIL: After informed consent was obtained and appropriate preoperative antibiotics administered, the patient was taken to the operating room and placed in supine position and monitored anesthesia care was administered. The patient was then placed in Trendelenburg position and the patent compressible right internal jugular vein accessed easily on the first attempt under direct ultrasound guidance with excellent flow of dark venous non- pulsatile blood. A wire threaded easily and was confirmed to be in the compressible vein by ultrasound and with the tip in the superior vena cava by fluoroscopy. Additional local anesthesia was infused to the skin and subcutaneous tissues of the right neck and chest. A skin incision was made on the right chest and a subcutaneous pocket developed inferiorly. A Mediport was obtained and confirmed to fit in the subcutaneous pocket. This was secured inferiorly to the pectoralis fascia with a Prolene suture, which was clamped, but not tied. Mediport tubing was then tunneled from the chest to the right IJ access site subcutaneously. The dilator and sheath were then placed over the wire and the dilator and wire removed leaving the sheath in place. The clamped MediPort tubing was tunneled through the sheath, which was then split and removed leaving the MediPort tubing in place. The tubing was adjusted until the tip was confirmed by fluoroscopy to be in the superior vena cava just above the atrium. The tubing was clamped at the skin level and cut and the tubing secured to the port, which was then placed in the subcutaneous pocket. The previously placed suture was secured and two additional sutures were placed to fix the port in place within the pocket. The port was aspirated with the Silva needle and had excellent flow of dark venous non-pulsatile blood and easily flushed without resistance. The subcutaneous tissues were closed with a running Monocryl suture, following which the skin was closed with a running subcuticular Monocryl suture. Dermabond dressings were placed. The course of the catheter was confirmed by fluoroscopy to be smooth with the tip appropriately located in the superior vena cava. The patient was taken back to recovery in good condition. Estimated blood loss was minimal. There were no complications. There were no specimens.
--- NOTE | 2018-12-10 13:50 | PDOC.MOPN ---
Interval History: Pt feeling well today, mostly c/o leg problems. No AEs from chemo yesterday. - Vital Signs Vital Signs: Vital Signs (12 hours) Temp Pulse Resp BP BP Pulse Ox 12/10/18 13:40 78 14 95 12/10/18 08:00 98.3 F 100 20 132/70 96 12/10/18 07:35 92 14 96 12/10/18 04:00 97.5 F L 99 18 119/82 92 L Weight Admit Weight 184 lb Weight 185 lb 3.013 oz Most Recent Monitor Data NIBP 99/67 - Physical Exam General: Alert, Oriented x3, Cooperative HEENT: Atraumatic, EOMI Lungs: Normal air movement Cardiovascular: Regular rate Abdomen: Soft Neurological: Normal speech, Cranial nerves 3-12 NL Psych/Mental Status: Mental status NL, Mood NL - Labs Result Diagrams: 12/10/18 04:07 12/10/18 04:07 Lab results: Laboratory Results - last 24 hr 12/10/18 11:55: POC Glucose 116 H 12/10/18 05:55: POC Glucose 112 H 12/10/18 04:07: WBC 6.1, RBC 4.51 L, Hgb 13.8 L, Hct 41.5 L, MCV 91.9, MCH 30.6 , MCHC 33.3, RDW 16.7 H, Plt Count 93 L, MPV 6.9 L, Neutrophils % 85.6 H, Neutrophils % (Manual) Not Reportable, Lymphocytes % 7.0 L, Monocytes % 4.5, Eosinophils % 2.9, Basophils % 0.0, Neutrophils # 5.2, Lymphocytes # 0.4 L, Monocytes # 0.3, Eosinophils # 0.2, Basophils # 0.0 12/10/18 04:07: Sodium 133 L, Potassium 4.8, Chloride 101, Carbon Dioxide 24, Anion Gap 13, BUN 8 L, Creatinine 0.80, Estimated GFR (MDRD) Greater than 90, Glucose 108 H, Calcium 9.5, Magnesium 2.1 12/10/18 03:16: POC Glucose 91 12/10/18 00:02: POC Glucose 88 12/09/18 21:14: POC Glucose 61 L 12/09/18 19:34: POC Glucose 56 L* A/P - Problem (1) Small cell carcinoma Current Visit: Yes Code(s): C80.1 - MALIGNANT (PRIMARY) NEOPLASM, UNSPECIFIED Status: Acute - Plan Plan: C1D2 of Carboplatin + VP16, Neulasta support day 4 Pt will need PET at discharge to evaluate adrenal mass and for other sites of disease: if LS-SCLC would add XRT with C2 and change Carboplatin to Cisplatin , if ES-SCLC could consider adding Tecentriq refer to [facility] as we do not take his type of Medicaid and cannot see him in clinic
--- NOTE | 2018-12-10 15:10 | PRG ---
DATE OF SERVICE: 12/10/2018 SUBJECTIVE: The patient is seen and examined at the bedside. His is present by his bedside. He does not have much complaints to offer. His appetite is good. He had bowel movements. OBJECTIVE: VITAL SIGNS: Blood pressure is 119/82, pulse is 99, respirations 18, O2 saturation is 92% on 2 L by nasal cannula, temperature is 97.5. HEAD: Atraumatic and normocephalic. EYES: PERRLA. Sclerae are nonicteric. ENT: Oral mucosa is moist. NECK: Supple. LUNGS: Clear. HEART: S1 and S2 normal. ABDOMEN: Soft, nontender, nondistended. EXTREMITIES: No clubbing, cyanosis, or edema. NEUROLOGIC: Alert and oriented x4. There are no any motor deficits. LABORATORY DATA: Labs showed white count of 6.1, hemoglobin 13.8, hematocrit 41.5, platelet count is 93,000. Sodium of 133, potassium 4.8, chloride 101, CO2 of 24, BUN 8, creatinine 0.8. Glycemia is ranging from 61 to 116. Magnesium 2.1 and calcium 9.5. IMPRESSION: 1. Small cell carcinoma of the lung, status post CT-guided biopsy. 2. Acute hypoxic respiratory failure secondary to chronic obstructive pulmonary disease exacerbation. 3. Hyponatremia secondary to SIADH, improved. 4. Bilateral adrenal masses. 5. Thrombocytopenia. 6. Generalized weakness, multifactorial. 7. Ongoing tobacco use. 8. Syncopal episodes at the time of admission, most likely related to volume depletion. 9. Chronic back pain. 10. Frequent falls. PLAN: The patient is receiving chemotherapy by Oncology Service. He is on Levaquin which will be continued. We will continue tolvaptan per Nephrology recommendation. The patient is doing quite well. He will need a PET scan at discharge to evaluate adrenal mass and for other sites of disease. Based on Dr. Choi's note, he will have to be referred to [facility] as Dr. Choi's group does not take this type of Medicaid he has. His Lovenox is still on hold because of thrombocytopenia. Job ID: [id number]
--- NOTE | 2018-12-10 15:17 | EKG ---
Test Reason : Blood Pressure : / mmHG Vent. Rate : 112 BPM Atrial Rate : 112 BPM P-R Int : 170 ms QRS Dur : 142 ms QT Int : 356 ms P-R-T Axes : 055 269 057 degrees QTc Int : 485 ms Sinus tachycardia Possible Left atrial enlargement Right bundle branch block , plus right ventricular hypertrophy Cannot rule out Anteroseptal infarct , age undetermined Abnormal ECG Undetermined axis Confirmed by ISAAC BIRMINGHAM MD ([id number]), development editor BRAYAN HENDERSON ([id number]) on 12/10/2018 3:17:30 PM Referred By: Confirmed By:ISAAC BIRMINGHAM MD
[2018-12-10] MEDS: Tolvaptan 15 MG TAB PO SCH (16:32)
[2018-12-10] MEDS: risperiDONE 0.25 MG TAB PO SCH (19:43)
[2018-12-10] MEDS: Dexamethasone 10 MG in Sodium Chloride 0.9% 50 ML IVPB SCH (23:04)
[2018-12-10] MEDS: Etoposide 200 MG in Sodium Chloride 0.9% 500 ML IVPB SCH (23:28)
[2018-12-11 08:01] LABS: Phosphorus 3.8 mg/dL (2.3-4.7)
[2018-12-11 08:02] LABS: ALT (SGPT) Less than 7 U/L (8-55); AST (SGOT) 11 U/L (5-34); Albumin 3.6 g/dL (3.5-5.0); Alkaline Phosphatase 59 U/L (40-150); Anion Gap 11 mmol/L (10-20); BUN (Urea Nitrogen) 12 mg/dL (8.4-25.7); Bilirubin, Total 0.6 mg/dL (0.2-1.2); Calc. Creatinine Clearance 117 mL/min (70-130); Calcium 9.6 mg/dL (7.8-10.44); Carbon Dioxide 28 mmol/L (22-29); Chloride 98 mmol/L (98-107); Estimated GFR-MDRD Greater than 90; Globulin 3.5 g/dL (2.4-3.5); Glucose 113 mg/dL (70-105); Potassium 4.9 mmol/L (3.5-5.1); Protein, Total 7.1 g/dL (6.0-8.3); Sodium 132 mmol/L (136-145); Uric Acid 6.4 mg/dL (3.5-7.2)
[2018-12-11] MEDS: Famotidine 20 MG TAB PO SCH ×2 (08:11→20:21)
[2018-12-11] MEDS: Folic Acid 1 MG TAB PO SCH (08:11)
[2018-12-11] MEDS: Senokot S 8.6-50 MG TAB PO SCH ×2 (08:12→20:23)
[2018-12-11] MEDS: Divalproex Sodium DR 500 MG TAB PO SCH ×2 (08:12→20:22)
[2018-12-11] MEDS: Benztropine 1 MG TAB PO SCH ×2 (08:12→20:22)
[2018-12-11] MEDS: Multivit, Therapeutic 1 TAB PO SCH (08:12)
[2018-12-11] MEDS: traMADol HCl 50 MG TAB PO SCH ×2 (08:14→20:21)
[2018-12-11] MEDS: Mometasone/Formoterol 120 PUFF INHALER INH SCH ×2 (08:29→19:22)
[2018-12-11] MEDS: Tolvaptan 15 MG TAB PO SCH (08:47)
[2018-12-11] MEDS ORDERED: Pegfilgrastim Onpro 6 MG/0.6 ML SQ SCH (09:15)
--- NOTE | 2018-12-11 09:38 | PRG ---
DATE OF SERVICE: 12/11/2018 SUBJECTIVE: A 58-year-old male with recent diagnosis of small-cell lung cancer, on chemotherapy, being followed up for hyponatremia. No new problem. Oral intake is great. Denied nausea, vomiting, abdominal pain, or leg swelling. OBJECTIVE: VITAL SIGNS: Temperature 97.4, pulse 66, respiratory rate 15, SpO2 95% on room air, blood pressure 126/70. GENERAL: A male patient, in no distress. Afebrile. Anicteric. Acyanotic. HEENT: Normocephalic and atraumatic. Oral mucosa is moist. CARDIOVASCULAR: Regular rhythm and rate. Normal heart sounds 1 and 2. RESPIRATORY: Mildly decreased air entry on left hemithorax. A few transmitted sounds are heard with no obvious rhonchi. Work of breathing is not increased. GI: Full, soft, nontender, nondistended with normal bowel sounds. EXTREMITIES: Grossly normal looking atraumatic with no edema or erythema. RODEO PERFORMER: Conscious, alert, and oriented x3 with appropriate mental status. Cranial nerves, 2 through 12 are grossly intact. DIAGNOSTIC DATA: CMP today showed sodium 132, potassium 4.9, chloride 98, CO2 28, BUN 12, creatinine 0.8, glucose 113, calcium is 9.6, total bilirubin 0.6, AST 11, ALT 7, alkaline phosphatase 59, total protein 7.1, albumin 3.6, globulin 3.5. Phosphorus 3.8. Uric acid 6.4. ASSESSMENT: 1. Hyponatremia: Due to syndrome of inappropriate antidiuretic hormone secretion. Sodium level is holding steady at around 130 to 133 following treatment with Samsca. 2. Syndrome of inappropriate antidiuretic hormone secretion: Due to small cell cancer with possible contribution from psychotropic medications. 3. Acute kidney injury: Resolved. 4. Blood pressure: Within acceptable range. Hypotension has resolved with IV fluid therapy. 5. Small cell lung cancer: Treatment as per oncologist. PLAN: 1. We will continue Samsca 15 mg daily. 2. We will allow liberal oral intake. 3. We will recheck CMP as well as phosphorus and uric acid in the morning. So far, there is no evidence of tumor lysis syndrome. Many thanks for involving us in the care of this patient. We will continue to follow along with you. Job ID: [id number]
--- NOTE | 2018-12-11 14:03 | PRG ---
DATE OF SERVICE: 12/11/2018 SUBJECTIVE: The patient is seen and examined at the bedside. He does not have much complaints to offer. OBJECTIVE: VITAL SIGNS: Blood pressure is 98/55, pulse is 78, respirations 20, and O2 saturation is 94% on 2 L by nasal cannula. His temperature is 98.4, his maximal temperature is 98.4. HEENT: His eyes are PERRLA. Sclerae are nonicteric. Oral mucosa is moist. NECK: Supple. LUNGS: Few rales at both upper lobes. No wheezing. HEART: S1, S2 normal. No S3. No S4. ABDOMEN: Soft, nontender, and nondistended. EXTREMITIES: No clubbing, cyanosis, or edema. NEUROLOGICAL: He follows my commands. He moves his all 4 extremities. There is no motor or sensory deficits. LABORATORY DATA: Labs showed sodium of 132, potassium 4.9, chloride 98, CO2 of 28, BUN 12, creatinine 0.8, glucose 113, and the rest of chemistry is within normal limits. IMPRESSION: 1. Small-cell carcinoma of the lung, status post CT-guided biopsy on recent chemo, he is supposed to have additional dose of chemotherapy tonight. 2. Acute hypoxic respiratory failure secondary to chronic obstructive pulmonary disease exacerbation, resolved. 3. Hyponatremia secondary to syndrome of inappropriate antidiuretic hormone. Sodium level improved to 130 today. 4. Bilateral renal masses. 5. Thrombocytopenia. 6. Generalized weakness, multifactorial. 7. Ongoing tobacco use. 8. Syncopal episode at the time of admission, most likely related to volume depletion. 9. Chronic back pain. 10. Frequent falls. PLAN: The patient is going to have additional dose of chemotherapy per Dr. Jimbo dominguez. Gasser Machine Operator wants to continue his tolvaptan. We will have some lab work tomorrow with kidney function, uric acid, and phosphorus to check for tumor lysis syndrome, and he will need PET scan according to Dr. Choi's recommendation prior to discharge and to assess his adrenal glands and cancer status. Job ID: [id number]
[2018-12-11] MEDS: risperiDONE 0.25 MG TAB PO SCH (20:20)
[2018-12-11] MEDS ORDERED: Dexamethasone 10 MG in Sodium Chloride 0.9% 50 ML IVPB SCH (22:45)
[2018-12-11] MEDS: Etoposide 200 MG in Sodium Chloride 0.9% 500 ML IVPB SCH (23:33)
[2018-12-12 05:59] LABS: ALT (SGPT) Less than 7 U/L (8-55); AST (SGOT) 10 U/L (5-34); Albumin 3.3 g/dL (3.5-5.0); Alkaline Phosphatase 62 U/L (40-150); Anion Gap 11 mmol/L (10-20); BUN (Urea Nitrogen) 12 mg/dL (8.4-25.7); Bilirubin, Total 0.6 mg/dL (0.2-1.2); Calc. Creatinine Clearance 117 mL/min (70-130); Carbon Dioxide 26 mmol/L (22-29); Chloride 99 mmol/L (98-107); Estimated GFR-MDRD Greater than 90; Globulin 3.2 g/dL (2.4-3.5); Glucose 136 mg/dL (70-105); Potassium 4.6 mmol/L (3.5-5.1); Protein, Total 6.5 g/dL (6.0-8.3); Sodium 131 mmol/L (136-145); Uric Acid 6.6 mg/dL (3.5-7.2)
[2018-12-12 06:13] LABS: Phosphorus 2.9 mg/dL (2.3-4.7)
--- NOTE | 2018-12-12 07:30 | PRG ---
DATE OF SERVICE: 12/09/2018 SERVICE: Nephrology. SUBJECTIVE: A 58-year-old male with recent diagnosis of small-cell lung cancer, being followed up for hyponatremia. The patient denied nausea, vomiting, diarrhea, chest pain, gait instability, or change in mental status. OBJECTIVE: VITAL SIGNS: Temperature 97.5, pulse 66, respiratory rate 16, SpO2 of 98% on 2 L nasal cannula, blood pressure is 122/68. GENERAL: Male patient, in no obvious distress. Afebrile. Anicteric. Acyanotic. HEENT: Normocephalic, atraumatic. Oral mucosa is moist. CARDIOVASCULAR: Regular rhythm and rate with normal heart sounds 1 and 2. RESPIRATORY: Fair air entry bilaterally with no obvious crackle or rhonchi or use of accessory muscles. GI: Full, soft, nontender, nondistended with normal bowel sounds. EXTREMITIES: Grossly normal looking, atraumatic with no edema or erythema. OUTSIDE PARTS SALES: Conscious, alert, oriented x3 with appropriate mental status. DIAGNOSTIC DATA: BMP today showed sodium 123, potassium 5.1, chloride 87, CO2 of 30, BUN 7, creatinine 0.83, glucose 65, calcium 9.6. ASSESSMENT: 1. Hyponatremia: Due to syndrome of inappropriate antidiuretic hormone secretion. Sodium level is trending downwards. It is unclear whether the patient has been compliant with water restriction, however, chemotherapy is planned today. 2. Acute kidney injury: Resolved. 3. Hypotension: Resolved. 4. Hypovolemia: The patient is currently euvolemic. PLAN: 1. We will start the patient on Samsca 15 mg p.o. daily. 2. We will also discontinue fluid restriction. 3. We will monitor electrolytes and serum sodium. Further recommendation to follow depending on review of ordered BMP in the morning. Job ID: [id number]
--- NOTE | 2018-12-12 07:49 | PRG ---
DATE OF SERVICE: 12/12/2018 SERVICE: Nephrology. SUBJECTIVE: A 58-year-old being followed up for hyponatremia in the context of syndrome of inappropriate ADH secretion due to small cell lung cancer with possible contribution from psychotropic medications. The patient reports no new complaint. Denied nausea, vomiting, or change in bowel habit. The patient is drinking whole lot of fluid. Drank about 3 L of water plus some soda and coffee and juice totaling up to 4 L in the last 24 hours. At home, the patient reportedly drinks about 3 bottles of Pepsi plus coffee, which he said is about 2 L normally. OBJECTIVE: VITAL SIGNS: Temperature 97.6, pulse 97, respiratory rate 16, SpO2 of 96% on 3 L nasal cannula, and blood pressure is 127/85. GENERAL: Male patient in no distress. Afebrile. Anicteric. Acyanotic. HEENT: Normocephalic, atraumatic. Oral mucosa is moist. CARDIOVASCULAR: Regular rhythm and rate. Normal heart sounds. RESPIRATORY: Fair air entry bilaterally with some transmitted breath sounds. No obvious rhonchi were appreciated. GASTROINTESTINAL: Full, soft, nontender, nondistended with normal bowel sounds. EXTREMITIES: Grossly normal looking atraumatic with no edema or erythema. CENTRAL NERVOUS SYSTEM: Conscious and alert oriented x3 with appropriate mental status. DIAGNOSTIC DATA: CMP today showed sodium 131, potassium 4.6, chloride 99, CO2 of 26, BUN 12, creatinine 0.80, glucose 136, uric calcium 9.0, total bilirubin 0.6, AST 10, ALT less than 7, alkaline phosphatase 62, total protein 6.5, albumin 3.3, globulin 3.2. Uric acid is 6.6 and phosphorus is 2.9. ASSESSMENT: 1. Hyponatremia: Due to syndrome of inappropriate antidiuretic hormone secretion. 2. Sodium is down today from peak of 133 to 131. The patient is on Samsca 15 mg p.o. daily. Oral intake has picked up. The patient reportedly drank about 4 L in the last 24 hours. He, however, reported that he only drinks about 3 bottles of soda plus coffee at home. 3. Syndrome of inappropriate antidiuretic hormone secretion: Due to small cell cancer with possible contribution from psychotropic medications. 4. Acute kidney injury: Resolved. 5. Volume status and electrolytes: Acceptable. 6. Small cell cancer on treatment. No features of tumor lysis syndrome. PLAN: 1. We will increase tolvaptan to 30 mg p.o. daily. 2. Since the patient only drinks about 2 L at home, fluid restriction will not be commenced. We will, however, monitor the patient post discharge with a repeat lab in 1 week to adjust dose of Samsca. 3. The patient can be discharged from Nephrology point of view to follow up in 1 week with repeat BMP. Many thanks for involving us in the care of this patient. Job ID: [id number]
[2018-12-12] MEDS: HYDROcodone/Acetaminophen 5/325 mg Tablet PO PRN (07:55)
[2018-12-12] MEDS: Mometasone/Formoterol 120 PUFF INHALER INH SCH ×2 (08:03→19:16)
[2018-12-12] MEDS: Benztropine 1 MG TAB PO SCH ×2 (08:19→20:42)
[2018-12-12] MEDS: traMADol HCl 50 MG TAB PO SCH ×2 (08:19→20:43)
[2018-12-12] MEDS: Tolvaptan 15 MG TAB PO SCH (08:19)
[2018-12-12] MEDS: Divalproex Sodium DR 500 MG TAB PO SCH ×2 (08:19→20:44)
[2018-12-12] MEDS: Multivit, Therapeutic 1 TAB PO SCH (08:19)
[2018-12-12] MEDS: Famotidine 20 MG TAB PO SCH ×2 (08:22→20:42)
[2018-12-12] MEDS: Folic Acid 1 MG TAB PO SCH (08:22)
[2018-12-12] MEDS: Senokot S 8.6-50 MG TAB PO SCH ×2 (08:23→20:47)
--- NOTE | 2018-12-12 15:16 | PRG ---
DATE OF SERVICE: 12/12/2018 SUBJECTIVE: The patient is seen and examined at the bedside. He had his last chemotherapy done last night, and he is awaiting for Neulasta, which is supposed to be done 24 hours after that. He is not complaining about any problems. OBJECTIVE: VITAL SIGNS: Blood pressure is 121/75, pulse is 91, respirations are 16, O2 saturation is 95% on room air. GENERAL: He does not have much complaints to offer. HEENT: His head is atraumatic and normocephalic. Eyes are PERRLA. Sclerae are nonicteric. Oral mucosa is moist. NECK: Supple. LUNGS: Few rales at the left base. HEART: S1 and S2 normal. ABDOMEN: Soft, nontender. EXTREMITIES: No clubbing, cyanosis, or edema. NEUROLOGICAL: He follows my commands. He moves his all 4 extremities. LABORATORY DATA: No labs today. IMPRESSION: 1. Lung cancer, which is small cell carcinoma, status post CT-guided biopsy. He just received his chemotherapy last night and he is awaiting for his Neulasta 24 hours after that treatment. 2. Acute hypoxic respiratory failure secondary to chronic obstructive pulmonary disease exacerbation resolved. 3. Hyponatremia, on ADH receptor jennifer, the dose was increased to 30 mg of Samsca. 4. Bilateral renal masses. 5. Thrombocytopenia. 6. Generalized weakness, multifactorial. 7. Ongoing tobacco use. 8. Syncopal episode at the time of admission, most likely related to volume depletion. 9. Chronic back pain. 10. Frequent falls. PLAN: The dose on tolvaptan was increased to 30 mg once a day. He will be discharged tomorrow morning on this dose of tolvaptan. He will follow up with Dr. Murphy in [address] Choi will do the PET scan when he goes back to his office next week. Most likely, he will be discharged home tomorrow morning after his treatments are finished. Job ID: [id number]
[2018-12-12] MEDS: risperiDONE 0.25 MG TAB PO SCH (20:44)
[2018-12-12] MEDS ORDERED: Pegfilgrastim Onpro 6 MG/0.6 ML SQ SCH (23:59)
[2018-12-13] MEDS ORDERED: PEGFILGRASTIM-JMDB 6 MG/0.6 ML SYRINGE SQ SCH (01:30)
[2018-12-13] MEDS: HYDROcodone/Acetaminophen 5/325 mg Tablet PO PRN (02:16)
[2018-12-13] MEDS: Mometasone/Formoterol 120 PUFF INHALER INH SCH (07:45)
[2018-12-13 08:18] VITALS: BP 106/70; TEMP 97.8
[2018-12-13] MEDS: Benztropine 1 MG TAB PO SCH (08:41)
[2018-12-13] MEDS: Multivit, Therapeutic 1 TAB PO SCH (08:41)
[2018-12-13] MEDS: traMADol HCl 50 MG TAB PO SCH (08:42)
[2018-12-13] MEDS: Folic Acid 1 MG TAB PO SCH (08:42)
[2018-12-13] MEDS: Tolvaptan 15 MG TAB PO SCH (08:43)
[2018-12-13] MEDS: Senokot S 8.6-50 MG TAB PO SCH (08:44)
[2018-12-13] MEDS: Divalproex Sodium DR 500 MG TAB PO SCH (08:45)
[2018-12-13 08:57] LABS: Anion Gap 12 mmol/L (10-20); BUN (Urea Nitrogen) 14 mg/dL (8.4-25.7); Calc. Creatinine Clearance 114 mL/min (70-130); Calcium 9.3 mg/dL (7.8-10.44); Carbon Dioxide 28 mmol/L (22-29); Chloride 97 mmol/L (98-107); Estimated GFR-MDRD Greater than 90; Glucose 105 mg/dL (70-105); Sodium 132 mmol/L (136-145)
[2018-12-13] MEDS: Famotidine 20 MG TAB PO SCH (09:00)
--- NOTE | 2018-12-13 10:34 | DIS ---
DATE OF ADMISSION: 12/03/2018 DATE OF DISCHARGE: 12/13/2018 DIAGNOSES AT THE TIME OF DISCHARGE: 1. Small cell carcinoma of the lung, status post 1st round of chemotherapy and Neulasta use. 2. Acute hypoxic respiratory failure secondary to chronic obstructive pulmonary disease exacerbation, resolved. 3. Hyponatremia secondary to syndrome of inappropriate secretion of antidiuretic hormone. 4. Bilateral renal masses. 5. Thrombocytopenia. 6. Generalized weakness. 7. Ongoing tobacco use. 8. Syncopal episode at the time of admission, most likely related to volume depletion. 9. Chronic back pain. 10. Frequent falls. CONSULTANTS: 1. Dr. Gilson Chin, Pulmonary/Critical Care. 2. Dr. Grzegorz Choi, Oncology Service. HOSPITAL COURSE: The patient is a 58-year-old male with generalized weakness, COPD exacerbation, frequent fall, and suspicion for lung mass, who was brought to the emergency room to be evaluated for generalized weakness. He reported frequent falls at home. He passed out several times prior to this evaluation in the emergency room. He noticed increased shortness of breath. He denies any fever or chills. He had some vague abdominal discomfort. In the emergency room, he was hypotensive, tachycardic, and hypoxic. Labs showed lactic acidosis, hyponatremia, and acute kidney injury, and the radiological evaluation showed 5 cm mass in the left lower lobe and pulmonary hypertension with emphysematous changes. Abdominal x-ray showed bilateral adrenal gland masses. He was given IV fluids, started on levofloxacin and was admitted to oncology floor. During emergency room evaluation, his EKG showed sinus tachycardia, complete right bundle-branch block with right ventricular hypertrophy. CT of the cervical spine showed no fracture or dislocation. CT of the brain showed no acute intracranial process, and CT angiography showed no PE, but 5 cm mass in the left lower lobe and emphysema. Also, CT of the abdomen showed compression fracture involving L2. His hypotension and tachycardia were most likely related to his volume depletion. His hyponatremia was 126. Lactic acid was 4.3, creatinine 1.59. Normal AST and ALT. Creatine kinase was 427. His white count was 8.8, hemoglobin 17.8, hematocrit 53.1, and platelet count was 156,000. His lactic acid corrected very quickly in the next few hours. He was down to 1.8. His serum osmolality was down to 279, and with IV fluids, his creatinine was back to 0.79, which is normal range the next day and sodium improved to 129 and chloride improved to 97 in less than 24 hours. His TSH was 2.3, and cortisol level was 17, so there was no any adrenal insufficiency at this point. His urine drug screen did not show any positives. Alcohol level was negative. The patient was admitted to intensive care unit, and he was seen by ventilation equipment tender/ear specialist, Dr. Chin, who recommended further evaluation of his stage of the disease with PET scan after he is discharged from the hospital because it was most likely his back pain and masses in both adrenal glands were metastasis from the lung tumor. His echocardiogram showed LVEF estimated at 60% to 65%. It was technically difficult study with suboptimal images. He underwent lung biopsy with CT guidance. Pathology report came back positive for small cell carcinoma. Oncology team was consulted, and the recommendation was chemotherapy. He got MediPort placed by the surgeon, and he underwent MRI of the brain to rule out central nervous system metastasis. This was kind of markedly limited examination, but there was no any good evidence of metastatic disease in the central nervous system. 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 Kennedy Murphy, who recommended ADH receptor jennifer, and he was started on Samsca 15 mg once a day along with fluid restrictions. His sodium gradually improved. The dose of Samsca was increased to 30 mg. He received the 1st round of chemotherapy supervised by Dr. Choi. He tolerated the treatments well. He did not have any significant problems with it. His last sodium level yesterday was 131. His general condition is fair. He needs a wheelchair, so we will get one. His blood pressure is 130/82, pulse is 89, respirations 18, O2 saturation is 97% on room air. Apparently, he was found to smoke outside of the hospital despite of our counseling on his cigarette smoking. He is going to be discharged home. He had Neulasta placed 24 hours after the last chemotherapy. He received carboplatin and BANDSAW OPERATOR-16. He is seen and examined before he is discharged. He will stay on regular diet, activities somewhat limited because of his generalized weakness. He is going to use wheelchair. He will call Dr. Choi's office to get followup appointment with him and set up the lab work and PET scan of his body to assess current situation with his disease status. Also, he will follow up with Dr. Murphy. He will call his office in the next day or two, and he will set up followup appointment. MEDICATIONS AT THE TIME OF DISCHARGE: 1. Tramadol 100 mg one tablet twice a day. 2. Benztropine mesylate 1 mg twice a day. 3. Risperdal 0.5 mg q.h.s. 4. Divalproex sodium two tablets q.h.s. 5. Furosemide 20 mg once a day. 6. Samsca 30 mg daily. 7. Levofloxacin 500 mg p.o. for the next 5 days. TIME SPENT: Time spent on this discharge is less than 30 minutes. Job ID: [id number]
--- NOTE | 2018-12-15 01:39 | PQF ---
SAP Letterpress Setter Crystal Reports Winform Viewer LYUBOV GILES ZBIGNIEW A MD [id number] CLINICAL DOCUMENTATION CLARIFICATION FORM: POST DISCHARGE Addendum to original discharge summary date: ____ Late entry note date: __ DATE: 12/15/18 ATTN: Junior Rhodes Please exercise your independent, professional judgment in responding to the clarification form. Clinical indicators are provided on the bottom of this form for your review Can you please further specify if Sepsis is ruled in or ruled out? Sepsis [ ] Ruled in diagnosis [ ] Continue to treat [ ] Resolved [ ] Ruled out diagnosis [ ] Cannot rule out diagnosis [ ] Other diagnosis please specify [ x] Unable to determine In addition, please specify: Present on Admission (POA): [ x] Yes [ ] No [ ] Unable to determine For continuity of documentation, please document condition throughout progress notes and discharge summary. Thank You. CLINICAL INDICATORS - SIGNS / SYMPTOMS / LABS H and P 12/03 pg.1- "In the emergency room, the patient is hypotensive, tachycardia and hypoxic" H and P 12/03 pg.1- "Routine blood test done, which showed lactic acidosis, hyponatremia and acute kidney injury" H and P 12/03 pg.2- "Vital signs on arrival, BP 90/70, pulse 115, respiratory rate20, temperature 97.7" H and P 12/03 pg.3- "Hypotension likely due to volume depletion" H and P 12/03 pg.4- "Lactic acidosis, uncertain etiology, but rule out sepsis." RISK FACTORS Acute hypoxemic respiratory failure- H and P 12/03 pg.4 COPD exacerbation- H and P 12/03 pg.3 Small cell of the lung cancer- DS 12/13 pg.1 TREATMENTS IV Fluids- MAR 9/07 Chest X-ray 12/03 Levofloxacin 750mg IV-JUN 04 (This form is maintained as a part of the permanent medical record) 2014 [employer], [employer]. All Rights Reserved Lito [email or web address] [not provided] [email or web address]
== END 2018-12-13 10:20 | disposition home or self-care (01) | DRG 180 ==
LOC: ERS 07:14 → ERHOLD 09:59 → ONC 13:05
PROVIDERS: ADMIT Internal Medicine; ATTEND Internal Medicine
PROC: 0BBJ3ZX Excision of Left Lower Lung Lobe, Percutaneous Approach, Diagnostic (ICD-10-PCS; principal; 2018-12-05)
PROC: 0JH63WZ Insertion of Totally Implantable Vascular Access Device into Chest Subcutaneous Tissue and Fascia, Percutaneous Approach (ICD-10-PCS; 2018-12-05)
PROC: 02HV33Z Insertion of Infusion Device into Superior Vena Cava, Percutaneous Approach (ICD-10-PCS; 2018-12-05)
PROC: B518YZA Fluoroscopy of Superior Vena Cava using Other Contrast, Guidance (ICD-10-PCS; 2018-12-05)
PROC: 3E04305 Introduction of Other Antineoplastic into Central Vein, Percutaneous Approach (ICD-10-PCS; 2018-12-05)
PROC: B543ZZA Ultrasonography of Right Jugular Veins, Guidance (ICD-10-PCS; 2018-12-05)
DX: C34.32 Malignant neoplasm of lower lobe, left bronchus or lung (principal); J96.01 Acute respiratory failure with hypoxia; J44.1 Chronic obstructive pulmonary disease with (acute) exacerbation; E22.2 Syndrome of inappropriate secretion of antidiuretic hormone; N17.9 Acute kidney failure, unspecified; E87.2 Acidosis; F32.0 Major depressive disorder, single episode, mild; R04.2 Hemoptysis; C79.72 Secondary malignant neoplasm of left adrenal gland; C79.71 Secondary malignant neoplasm of right adrenal gland; F17.210 Nicotine dependence, cigarettes, uncomplicated; F41.9 Anxiety disorder, unspecified; E86.9 Volume depletion, unspecified; I27.20 Pulmonary hypertension, unspecified; I95.9 Hypotension, unspecified; D69.6 Thrombocytopenia, unspecified; E86.0 Dehydration; K21.9 Gastro-esophageal reflux disease without esophagitis; E66.9 Obesity, unspecified; Z90.49 Acquired absence of other specified parts of digestive tract; Z88.0 Allergy status to penicillin; Z79.899 Other long term (current) drug therapy; Z79.51 Long term (current) use of inhaled steroids; Z68.26 Body mass index [BMI] 26.0-26.9, adult
CPT/HCPCS: 32405; 36415; 36416; 36430; 70450; 70553; 71045; 71275; 72125; 74177; 77012; 80048; 80053; 80069; 80306; 80307; 81003; 82330; 82533; 82550; 82570; 82803; 83605; 83690; 83735; 83880; 83930; 83935; 84100; 84300; 84443; 84484; 84550; 85025; 85610; 85730; 86850; 86900; 86901; 87040; 87086; 88305; 88313; 88333; 88334; 88341; 88342; 88360; 93005; 93306; 94640; 96361; 96365; 96366; 96377; A9577; C1788; J1100; J1642; J1650; J1956; J2001; J2250; J2405; J2469; J2505; J2704; J3010; J3490; J7050; J7620; J9045; J9181; P9035; Q0162; Q0177; Q9967; S0028

== ENCOUNTER 2018-12-18 07:37 | Emergency (ER) | payer OTHER ==
[2018-12-18] MEDS ORDERED: Ondansetron PF 4 MG/2 ML Vial ONE (08:01)
[2018-12-18] MEDS ORDERED: Promethazine HCl 25 MG/ML VIAL ONE (08:01)
[2018-12-18 08:46] LABS: White Blood Cell (WBC) Count 0.8 thou/uL (4.8-10.8)
[2018-12-18 08:54] LABS: ALT (SGPT) 7 U/L (8-55); AST (SGOT) 11 U/L (5-34); Albumin 3.5 g/dL (3.5-5.0); Alkaline Phosphatase 82 U/L (40-150); Anion Gap 14 mmol/L (10-20); BUN (Urea Nitrogen) 15 mg/dL (8.4-25.7); CK (CPK) 12 U/L (30-200); Calc. Creatinine Clearance 0 mL/min (70-130); Calcium 9.2 mg/dL (7.8-10.44); Carbon Dioxide 24 mmol/L (22-29); Chloride 96 mmol/L (98-107); Estimated GFR-MDRD Greater than 90; Globulin 3.5 g/dL (2.4-3.5); Glucose 84 mg/dL (70-105); Lipase Less than 4 U/L (8-78); Potassium 3.9 mmol/L (3.5-5.1); Sodium 130 mmol/L (136-145)
[2018-12-18 09:11] LABS: Band 2 % (5-11); Eosinophils 4 % (0-10); Hemoglobin 10.5 g/dL (14.0-18.0); Large Platelets SLIGHT; Lymphocytes 67 % (21-51); MDiff Complete? YES; Mean Corpuscular HGB CONC 35.1 g/dL (32.0-36.0); Mean Corpuscular Volume 91.1 fL (78.0-98.0); Mean Platelet Volume 7.6 fL (7.4-10.4); Monocytes 14 % (0-10); Neutrophil 12 % (42-75); Platelet Count 104 thou/uL (130-400); Platelet Morphology Comment Appears Decreased; RBC Distribution Width 15.4 % (11.5-14.5); Reactive Lymphocytes 1 % (0-10); Red Blood Cell (RBC) Count 3.28 mill/uL (4.70-6.10)
[2018-12-18] MEDS ORDERED: traMADol HCl 50 MG TAB ONE (09:40)
== END 2018-12-18 10:48 | disposition home or self-care (01) ==
LOC: ERS 07:37
DX: E86.0 Dehydration (principal); C34.91 Malignant neoplasm of unspecified part of right bronchus or lung; F17.210 Nicotine dependence, cigarettes, uncomplicated
CPT/HCPCS: 80053; 82550; 83690; 85025; 93005; 96361; 96365; 96375; J2405; J2550